=== PATIENT | female | born 1960 | race Caucasian/White ===

== ENCOUNTER → 2016-11-21 | Outpatient (CLI) | payer BC ==
--- NOTE | 2016-11-25 07:11 | MM ---
Reason for exam: screening (asymptomatic). Last mammogram was performed 5 years and 10 months ago. History: Patient is postmenopausal. Physical Findings: A clinical breast exam by your physician is recommended on an annual basis and results should be correlated with mammographic findings. MG Screening Mammo w CAD Bilateral CC and MLO view(s) were taken. Prior study comparison: January 30, 2011, [facility] DIGITAL LEFT BREAST MAMMOGRAM w/CAD. January 23, 2011, bilateral digital screening mammo w/CAD. There are scattered fibroglandular densities. No significant changes when compared with prior studies. ASSESSMENT: Negative, BI-RAD 1 RECOMMENDATION: Routine screening mammogram of both breasts in 1 year.
== END | disposition home or self-care (01) ==
LOC: RADMAMWWP 09:10
PROVIDERS: ATTEND Family Medicine
DX: Z12.31 Encounter for screening mammogram for malignant neoplasm of breast (principal)

== ENCOUNTER 2017-02-04 07:08 | Day surgery (SDC) | payer BC ==
[2017-01-31 15:55] VITALS: BMI 31.1
[~2017-02-04 07:08] MED LIST: LACTATED RINGERS 1,000 ML IV SCH
[2017-02-04 07:59] LABS: Glucose,Whole Blood 114 mg/dL (75-99)
[2017-02-04 08:00] VITALS: TEMP 98.1
[2017-02-04] MEDS ORDERED: LIDOCAINE 1% 20 ML VIAL (10MG/ML) FOR IV START INTRADERMA ONE (08:00)
[2017-02-04] MEDS ORDERED: GLUCAGON 1 MG/ML VIAL ONE (08:09)
[2017-02-04] MEDS ORDERED: PROPOFOL 10 MG/ML 20 ML VIAL IV ONE (08:09)
--- NOTE | 2017-02-04 08:51 | P.PCN ---
Date of Procedure: 02/04/17 Preoperative Diagnosis: Screening colonoscopy family history colon cancer, last colonoscopy 10 years ago Postoperative Diagnosis: Tortuous sigmoid colon, diverticuli, internal hemorrhoids, small polyp in the rectum which was removed with snare polypectomy and retrieved Procedure(s) Performed: Colonoscopy with snare polypectomy of rectal polyp Anesthesia: MAC Surgeon: Rachael Louise Estimated Blood Loss (ml): 0 IV fluids (ml): 200 Pathology: other (Rectal polyp) Condition: stable Disposition: PACU Indications for Procedure: Last colonoscopy 10 years ago, family history of Colon cancer Operative Findings: Tortuous redundant sigmoid colon, diverticuli, internal hemorrhoids, small polyp in the rectum removed with snare polypectomy and retrieved Description of Procedure: Patient was taken to the endoscopy suite and following sedation rectal exam was performed. Patient was noted to have slightly decreased sphincter tone no masses. Colonoscope was passed through the anus into the rectum. Was passed through the sigmoid colon which was tortuous and redundant up to the splenic flexure. Was passed through the transverse colon hepatic flexure right colon down to the area of the cecum. Circumferential observation of the mucosa did not reveal any lesions of concern in the cecum or right colon. No lesions of concern were identified in the transverse colon. No lesions of concern were noted in the left colon and the sigmoid colon scattered diverticuli were identified. Scope was brought down into the rectum where it was retroflexed internal hemorrhoids were identified. In the rectum there is a small polypoid lesion noted this was removed with snare polypectomy and retrieved. There was no active bleeding following this. The patient tolerated procedure in stable condition. Impression/plan: 1. Diverticuli 2. Internal hemorrhoids 3. Small polyp rectal area removed with snare polypectomy and retrieved Plan: 1. Conservative management diverticuli and hemorrhoids 2. Await results of polypectomy 3. Most likely repeat scope 7-10 years depending on results of polypectomy
--- NOTE | 2017-02-04 08:52 | P.DS ---
Providers Attending physician: Rachael Louise Primary care physician: Rowdy Martinez Plan - Discharge Summary Discharge Medication List Levothyroxine Sodium [Synthroid] 100 mcg PO DAILY 07/07/15 [History] Simvastatin [Zocor] 20 mg PO HS 07/07/15 [History] metFORMIN HCL [Glucophage] 500 mg PO BID 07/07/15 [History] ALPRAZolam [Xanax] 1 mg PO DIRECTED PRN 01/31/17 [History] Follow up Appointment(s)/Referral(s): Rachael Louise MD [STAFF PHYSICIAN] - 1 Week (call office on friday for polypectomy results) Activity/Diet/Wound Care/Special Instructions: do not drive today Discharge Disposition: HOME SELF-CARE
[2017-02-04 09:16] LABS: Glucose,Whole Blood 189 mg/dL (75-99)
[2017-02-04 09:17] VITALS: BP 116/78; PULSE 71; RESP 16
== END 2017-02-04 09:35 | disposition home or self-care (01) ==
LOC: ORWHC2ENDO 07:08
PROVIDERS: ATTEND Surgery
DX: Z12.11 Encounter for screening for malignant neoplasm of colon (principal); Z80.0 Family history of malignant neoplasm of digestive organs; D12.8 Benign neoplasm of rectum; Q43.8 Other specified congenital malformations of intestine; K57.30 Diverticulosis of large intestine without perforation or abscess without bleeding; K64.8 Other hemorrhoids; E11.9 Type 2 diabetes mellitus without complications; E07.9 Disorder of thyroid, unspecified; F41.9 Anxiety disorder, unspecified; Z79.84 Long term (current) use of oral hypoglycemic drugs; Z79.899 Other long term (current) drug therapy
CPT/HCPCS: 88305; 45385; J1610; J2704

== ENCOUNTER → 2017-06-09 | Outpatient (CLI) | payer BC ==
--- NOTE | 2017-06-09 12:33 | ECHOF ---
Referral Reason:H47.10 Unspecified papilledema MEASUREMENTS -------- HEIGHT: 157.5 cm WEIGHT: 74.8 kg BP: 120/60 IVSd: 1.1 cm (0.6 - 1.1) LVIDd: 4.1 cm (3.9 - 5.3) LVPWd: 1.1 cm (0.6 - 1.1) IVSs: 1.2 cm LVIDs: 3.2 cm LVPWs: 1.4 cm LA Diam: 2.6 cm (2.7 - 3.8) LAESV Index (A-L): 29.90 ml/m Ao Diam: 3.0 cm (2.0 - 3.7) AV Cusp: 2.0 cm (1.5 - 2.6) LA Diam: 3.3 cm (2.7 - 3.8) MV EXCURSION: 18.547 mm (> 18.000) MV EF SLOPE: 108 mm/s (70 - 150) EPSS: 0.3 cm MV E Pancho: 0.55 m/s MV DecT: 167 ms MV A Pancho: 0.64 m/s MV E/A Ratio: 0.86 RAP: 5.00 mmHg RVSP: 20.20 mmHg FINDINGS -------- Sinus rhythm. This was a technically adequate study. There is borderline concentric left ventricular hypertrophy. Overall left ventricular systolic function is normal with, an EF between 55 - 60 %. The right ventricle is normal in size. LA is midly dilated 29-33ml/m2. The right atrial size is normal. The aortic valve is trileaflet, and appears structurally normal. No aortic stenosis or regurgitation. Mild mitral regurgitation is present. Mild tricuspid regurgitation present. There is no evidence of pulmonary hypertension. The right ventricular systolic pressure, as measured by Doppler, is 20.20mmHg. There is no pulmonic regurgitation present. The aortic root size is normal. There is no pericardial effusion. CONCLUSIONS -------- 1. There is borderline concentric left ventricular hypertrophy. 2. Overall left ventricular systolic function is normal with, an EF between 55 - 60 %. 3. LA is midly dilated 29-33ml/m2. 4. Mild mitral regurgitation is present. 5. Mild tricuspid regurgitation present. 6. There is no evidence of pulmonary hypertension. 7. The right ventricular systolic pressure, as measured by Doppler, is 20.20mmHg. HAND RUG BRAIDER: Amber Samayoa RDCS
== END | disposition home or self-care (01) ==
LOC: RADECHMAIN 11:14
PROVIDERS: ATTEND Family Medicine
DX: I08.1 Rheumatic disorders of both mitral and tricuspid valves (principal); R26.9 Unspecified abnormalities of gait and mobility
CPT/HCPCS: 93306

== ENCOUNTER → 2017-06-10 | Outpatient (CLI) | payer BC ==
--- NOTE | 2017-06-10 08:34 | CT ---
EXAMINATION TYPE: CT brain wo con DATE OF EXAM: 06/10/2017 HISTORY: Unspecified papilledema and abnormality of gait per order. Headache, dizziness, right facial numbness, and vision changes per patient. CT DLP: 1082 mGycm. Automated Exposure Control for Dose Reduction was Utilized. TECHNIQUE: CT scan of the head is performed without contrast. COMPARISON: None. FINDINGS: There is no acute intracranial hemorrhage or midline shift identified. There is diffuse v entricular and sulcal prominence consistent with diffuse age-related cerebral atrophy. The visualize d globes are intact and the visualized sinuses are clear. IMPRESSION: No acute intracranial hemorrhage or midline shift. There is mild diffuse age-related ce rebral atrophy otherwise unremarkable study.
--- NOTE | 2017-06-10 08:58 | US ---
EXAMINATION TYPE: US carotid duplex BILAT DATE OF EXAM: 06/10/2017 COMPARISON: NONE CLINICAL HISTORY: R26.9 abnormality of gait H47.10 papilledema. EXAM MEASUREMENTS: RIGHT: Peak Systolic Velocity (PSV) cm/sec ----- Right CCA: 77.9 ----- Right ICA: 87.5 ----- Right ECA: 103.7 ICA/CCA ratio: 1.1 RIGHT: End Diastole cm/sec ----- Right CCA: 26.2 ----- Right ICA: 31.0 ----- Right ECA: 19.7 LEFT: Peak Systolic Velocity (PSV) cm/sec ----- Left CCA: 78.3 ----- Left ICA: 85.7 ----- Left ECA: 85.3 ICA/CCA ratio: 1.1 LEFT: End Diastole cm/sec ----- Left CCA: 26.7 ----- Left ICA: 42.0 ----- Left ECA: 20.6 VERTEBRALS (direction of flow): Right Vertebral: Antegrade Left Vertebral: Antegrade Mild atherosclerotic changes noted. No hemodynamically significant stenosis seen. Grayscale images show no significant plaque at carotid bulb level bilaterally. Velocity measurements and ratios are within normal limits in visualized portion of both internal carotid arteries. IMPRESSION: No hemodynamically significant stenosis is seen in either internal carotid artery.
== END | disposition home or self-care (01) ==
LOC: RADCTMAIN 08:04
PROVIDERS: ATTEND Family Medicine
DX: H47.10 Unspecified papilledema (principal); R26.9 Unspecified abnormalities of gait and mobility
CPT/HCPCS: 70450; 93880

== ENCOUNTER → 2018-02-11 | Outpatient (CLI) | payer BC ==
[2018-02-11 08:00] LABS: AST 14 U/L (14-36); Albumin 4.2 g/dL (3.5-5.0); Alkaline Phosphatase 62 U/L (38-126); Blood Urea Nitrogen 16 mg/dL (7-17); Calcium 9.9 mg/dL (8.4-10.2); Carbon Dioxide 25 mmol/L (22-30); Cholesterol 165 mg/dL (<200); Glucose 116 mg/dL (74-99); HDL Cholesterol 61 mg/dL (40-60); LDL Cholesterol,Calculated 84 mg/dL (0-99); Potassium 4.7 mmol/L (3.5-5.1); Sodium 140 mmol/L (137-145); Total Bilirubin 0.5 mg/dL (0.2-1.3); Total Protein 6.7 g/dL (6.3-8.2); Triglycerides 99 mg/dL (<150)
[2018-02-11 08:53] LABS: ALT 22 U/L (9-52); Anion Gap 10 mmol/L; Chloride 105 mmol/L (98-107)
[2018-02-11 19:13] LABS: Vitamin D 25 Hydroxy 30.4 ng/mL (30.0-100.0)
== END | disposition home or self-care (01) ==
LOC: LABWHC1 07:19
PROVIDERS: ATTEND Internal Medicine Endocrinology, Diabetes & Metabolism
DX: E11.9 Type 2 diabetes mellitus without complications (principal); E03.8 Other specified hypothyroidism; E55.9 Vitamin D deficiency, unspecified
CPT/HCPCS: 36415; 80053; 80061; 82043; 82306; 82570; 82607; 84443

== ENCOUNTER → 2018-09-15 | Outpatient (CLI) | payer BC ==
[2018-09-15 15:57] LABS: Vitamin D 25 Hydroxy 17.3 ng/mL (30.0-100.0)
[2018-09-15 18:15] LABS: Albumin 4.4 g/dL (3.80-4.90); Albumin/Globulin Ratio 2.32 (1.20-2.10); Anion Gap 8.2 mmol/L (4.00-12.00); Calcium 9.2 mg/dL (8.7-10.3); Carbon Dioxide 22.8 mmol/L (21.6-31.8); Globulin 1.9 g/dL (2.1-3.7); LDL Cholesterol,Calculated 111.4 mg/dL (0.0-131.0); Potassium 4.8 mmol/L (3.5-5.5); Total Bilirubin 0.6 mg/dL (0.3-1.2); Total Protein 6.3 g/dL (6.2-8.2); VLDL Calculation 19.6 mg/dL (5.00-40.00)
[2018-09-15 19:03] LABS: Hemoglobin A1C 5.6 % (4.0-6.0)
== END | disposition home or self-care (01) ==
LOC: LABWHC1 09:19
PROVIDERS: ATTEND Internal Medicine Endocrinology, Diabetes & Metabolism
DX: E11.9 Type 2 diabetes mellitus without complications (principal); E03.8 Other specified hypothyroidism; E55.9 Vitamin D deficiency, unspecified
CPT/HCPCS: 36415; 80053; 80061; 82043; 82306; 82570; 82607; 83036; 84443

== ENCOUNTER → 2018-12-25 | Outpatient (CLI) | payer BC ==
[2018-12-25 18:32] LABS: Albumin 4.5 g/dL (3.80-4.90); Albumin/Globulin Ratio 2.05 (1.60-3.17); Anion Gap 8.8 mmol/L (4.00-12.00); Calcium 9.7 mg/dL (8.7-10.3); Carbon Dioxide 25.2 mmol/L (21.6-31.8); Globulin 2.2 g/dL (1.6-3.3); LDL Cholesterol,Calculated 150.6 mg/dL (0.0-131.0); Potassium 4.6 mmol/L (3.5-5.5); Total Bilirubin 0.9 mg/dL (0.3-1.2); Total Protein 6.7 g/dL (6.2-8.2); VLDL Calculation 23.4 mg/dL (5.00-40.00)
[2018-12-25 22:55] LABS: Hemoglobin A1C 5.7 % (4.0-6.0)
== END ==
LOC: LABWHC1 08:07
PROVIDERS: ATTEND Internal Medicine Endocrinology, Diabetes & Metabolism
DX: E11.9 Type 2 diabetes mellitus without complications (principal); E55.9 Vitamin D deficiency, unspecified
CPT/HCPCS: 36415; 80053; 80061; 82043; 82306; 82570; 83036; 84443

== ENCOUNTER → 2019-01-19 | Outpatient (CLI) | payer BC ==
--- NOTE | 2019-01-20 10:26 | MM ---
Reason for exam: screening (asymptomatic). Last mammogram was performed 2 years and 2 months ago. History: Patient is postmenopausal. Took hormonal contraceptives for 20 years. Physical Findings: A clinical breast exam by your physician is recommended on an annual basis and results should be correlated with mammographic findings. MG 3D Screening Mammo W/Cad Bilateral CC and MLO view(s) were taken. Prior study comparison: November 21, 2016, bilateral MG screening mammo w CAD. January 30, 2011, [facility] DIGITAL LEFT BREAST MAMMOGRAM w/CAD. There are scattered fibroglandular densities. There is no discrete abnormality. ASSESSMENT: Negative, BI-RAD 1 RECOMMENDATION: Routine screening mammogram of both breasts in 1 year.
== END | disposition home or self-care (01) ==
LOC: RADMAMWWP 08:14
PROVIDERS: ATTEND Family Medicine
DX: Z12.31 Encounter for screening mammogram for malignant neoplasm of breast (principal)
CPT/HCPCS: 77063; 77067

== ENCOUNTER 2019-01-29 00:43 | Emergency (ER) | payer BC ==
[2019-01-29 01:08] VITALS: BP 122/72; PULSE 77; RESP 20; TEMP 97.4
[2019-01-29] MEDS ORDERED: predniSONE 20 MG TAB PO STA (01:19)
[2019-01-29] MEDS ORDERED: FAMOTIDINE 20 MG TAB PO STA (01:19)
--- NOTE | 2019-01-29 01:53 | ED ---
Allergic Reaction HPI - General Chief complaint: Allergic Reaction Stated complaint: Allergic Reaction/Hives Time Seen by Provider: 01/29/19 01:19 Source: patient Mode of arrival: ambulatory Limitations: no limitations - History of Present Illness Initial Comments: Radha is a pleasant 58-year-old female comes the ER for evaluation of ALLERGIC reaction. Patient reports that this afternoon she cleaned her carpets with a new chemical machine rug cleaner. After cleaning a carpet she noticed that she had hives on her upper or lower extremities and her trunk. Patient reports that she's been taking 50 mg of Benadryl every 4 hours since that time however he became bedtime and she started to feel somewhat anxious about having an ALLERGIC reaction. She began to feel like there may be some tightness in her chest that she had no wheezing or shortness of breath she decided to come to the ER for evaluation. Patient has no history of asthma or COPD. She has no shortness of breath. No chest pain. No nausea or vomiting. She reports she began feeling there some tightness in her chest though she is breathing well & tolerating oral intake. MD Complaint: allergic reaction - Related Data Home Medications Medication Instructions Recorded Confirmed Levothyroxine Sodium [Synthroid] 100 mcg PO DAILY 07/07/15 02/04/17 Simvastatin [Zocor] 20 mg PO HS 07/07/15 02/04/17 metFORMIN HCL [Glucophage] 500 mg PO BID 07/07/15 02/04/17 ALPRAZolam [Xanax] 1 mg PO DIRECTED PRN 01/31/17 02/04/17 Allergies Allergy/AdvReac Type Severity Reaction Status Date / Time No Known Allergies Allergy Verified 01/29/19 01:07 Review of Systems ROS Statement: Those systems with pertinent positive or pertinent negative responses have been documented in the HPI. ROS Other: All systems not noted in ROS Statement are negative. Past Medical History Past Medical History: Diabetes Mellitus, Hyperlipidemia, Thyroid Disorder Additional Past Medical History / Comment(s): HX OF MIGRAINES History of Any Multi-Drug Resistant Organisms: None Reported Past Surgical History: Adenoidectomy, Tonsillectomy Additional Past Surgical History / Comment(s): COLONOSCOPY Past Anesthesia/Blood Transfusion Reactions: No Reported Reaction Past Psychological History: Anxiety Smoking Status: Never smoker Past Alcohol Use History: Rare Past Drug Use History: None Reported - Past Family History Father Family Medical History: Cancer Additional Family Medical History / Comment(s): CANCER Sister(s) Family Medical History: Cancer Additional Family Medical History / Comment(s): LUNG General Exam - General Exam Comments Initial Comments: Physical Exam GENERAL: Patient is well-developed and well-nourished. Patient is nontoxic and well- hydrated and is in no distress. HENT: Normocephalic, Atraumatic. Normal oropharynx, no signs of posterior oropharyngeal edema EYES: PERRL, EOMI PULMONARY: Unlabored respirations. No audible rales rhonchi or wheezing was noted. No wheezing or rhonchi CARDIOVASCULAR: There is a regular rate and rhythm without any murmurs gallops or rubs. ABDOMEN: Soft and nontender with normal bowel sounds. SKIN: Hives on her upper extremities, excoriations in the antecubital fossa is Small amount of scattered hives on the abdomen Hives on the lower extremities most prominent on the thighs with excoriations : Deferred NEUROLOGIC: Patient is alert and oriented x3. Moving all extremities spontaneously MUSCULOSKELETAL: Normal extremities with adequate strength and full range of motion. No lower extremity swelling or edema. No calf tenderness. PSYCHIATRIC: Normal psychiatric evaluation. Limitations: no limitations Limitations: no limitations Course Vital Signs 01/29/19 01:04 Temperature 97.4 F L Pulse Rate 77 Respiratory 20 Rate Blood Pressure 122/72 O2 Sat by Pulse 99 Oximetry Medical Decision Making - Medical Decision Making Patient was seen and evaluated history is obtained from patient Patient had exposure to cleaning chemicals today and subsequently developed hives after 6 and half hours of symptoms she came to the ER for evaluation of tightness in her throat she became concerned that if she went to sleep while having ALLERGIC reaction to get much worse Physical exam does reveal hives, there does not appear to be any respiratory involvement there is no stridor no oropharyngeal edema, no uvula edema, no wheezing Absent and steroids were ordered Disposition Clinical Impression: Allergic reaction Disposition: HOME SELF-CARE Condition: Poor Instructions (If sedation given, give patient instructions): Urticaria (ED) Is patient prescribed a controlled substance at d/c from ED?: No Referrals: Rowdy Martinez MD [Primary Care Provider] - 1-2 days
== END 2019-01-29 02:05 | disposition home or self-care (01) ==
LOC: EC 00:43
DX: T78.49XA Other allergy, initial encounter (principal); L50.9 Urticaria, unspecified; E11.9 Type 2 diabetes mellitus without complications; E78.5 Hyperlipidemia, unspecified; E07.9 Disorder of thyroid, unspecified; Z79.890 Hormone replacement therapy; Z79.84 Long term (current) use of oral hypoglycemic drugs; Z79.899 Other long term (current) drug therapy
CPT/HCPCS: 99283; J7512

== ENCOUNTER → 2019-03-17 | Day surgery (SDC) | payer BC ==
[2019-03-15 14:14] VITALS: BMI 29.2
[~2019-03-17] MED LIST changes: +LIDOCAINE 1% 20 ML VIAL (10MG/ML) FOR IV START INTRADERMA PRN; +PROPOFOL 10 MG/ML 20 ML VIAL IV ONE; +fentaNYL (PF) 50 MCG/ML 2 ML AMP IV ONE
[2019-03-17 07:16] VITALS: TEMP 96.5
[2019-03-17 07:25] LABS: Glucose,Whole Blood 129 mg/dL (75-99)
--- NOTE | 2019-03-17 07:39 | P.GSHP ---
History of Present Illness H&P Date: 03/17/19 CHIEF COMPLAINT: Colon screen HISTORY OF PRESENT ILLNESS: The patient is a 58-year-old female who presents for colon screen. Lower endoscopy was offered for further evaluation and management. PAST MEDICAL HISTORY: Please see list. PAST SURGICAL HISTORY: Please see list. MEDICATIONS: Please see list. ALLERGIES: Please see list. SOCIAL HISTORY: No illicit drug use FAMILY HISTORY: No reports of Crohn disease or ulcerative colitis. REVIEW OF ORGAN SYSTEMS: CONSTITUTIONAL: No reports of fevers or chills. PHYSICAL EXAM: VITAL SIGNS: Stable GENERAL: Well-developed pleasant in no acute distress. HEENT: No scleral icterus. Extraocular movements grossly intact. Moist buccal mucosa. NECK: Supple without lymphadenopathy. CHEST: Unlabored respirations. Equal bilateral excursions. CARDIOVASCULAR: Regular rate and rhythm. Distal 2+ pulses. ABDOMEN: Soft, nontender, nondistended. MUSCULOSKELETAL: No clubbing, cyanosis, or edema. ASSESSMENT: 1. Colon screen. PLAN: 1. Recommend proceeding with a lower endoscopy Past Medical History Past Medical History: Diabetes Mellitus, Hyperlipidemia, Thyroid Disorder Additional Past Medical History / Comment(s): HX OF MIGRAINES History of Any Multi-Drug Resistant Organisms: None Reported Past Surgical History: Adenoidectomy, Tonsillectomy Additional Past Surgical History / Comment(s): COLONOSCOPY Past Anesthesia/Blood Transfusion Reactions: No Reported Reaction Smoking Status: Never smoker - Past Family History Father Family Medical History: Cancer Additional Family Medical History / Comment(s): colon-rectal Sister(s) Family Medical History: Cancer Additional Family Medical History / Comment(s): LUNG Medications and Allergies Home Medications Medication Instructions Recorded Confirmed Type Levothyroxine Sodium [Synthroid] 100 mcg PO DAILY 07/07/15 03/17/19 History Simvastatin [Zocor] 20 mg PO HS 07/07/15 03/17/19 History metFORMIN HCL [Glucophage] 500 mg PO HS 07/07/15 03/17/19 History ALPRAZolam [Xanax] 1 mg PO DIRECTED PRN 01/31/17 03/17/19 History Cholecalciferol [Vitamin D3 (25 5,000 unit PO WE 03/15/19 03/17/19 History Mcg = 1000 Iu)] Allergies Allergy/AdvReac Type Severity Reaction Status Date / Time No Known Allergies Allergy Verified 03/17/19 07:08 Surgical - Exam Vital Signs Temp Pulse Resp BP Pulse Ox 96.5 F L 71 18 102/50 96 03/17/19 07:13 03/17/19 07:13 03/17/19 07:13 03/17/19 07:13 03/17/19 07:13 Results - Labs Abnormal Lab Results - Last 24 Hours (Table) 03/17/19 Range/Units 07:15 POC Glucose (mg/dL) 129 H (75-99) mg/dL
[2019-03-17 08:02] VITALS: RESP 16
--- NOTE | 2019-03-17 08:04 | P.PCN ---
Date of Procedure: 03/17/19 Description of Procedure: PREOPERATIVE DIAGNOSIS: Family history of colon cancer, father Patient history of colon polyps Colonoscopy screening. POSTOPERATIVE DIAGNOSIS: Family history of colon cancer, father Patient history of colon polyps Colonoscopy screening. Moderate sigmoid diverticulosis OPERATION: Colonoscopy to the hepatic flexure SURGEON: Pau Thomas MD. ANESTHESIA: MAC. INDICATIONS: The patient is a 58-year-old female who presents for colonoscopy screening. Last colonoscopy 2 years ago with history of polyps. Benefits and risks were described and informed consent was obtained. DESCRIPTION OF PROCEDURE: The patient had undergone Gatorade, MiraLAX and Dulcolax prep. She had been brought into the operating room and laid in the left lateral decubitus position. After adequate intravenous sedation, the rectum was examined with 2% lidocaine jelly. No external hemorrhoids were encountered. The rectal tone was within normal limits. No lesions were palpated in the rectal vault. An Olympus colonoscope was advanced to the hepatic flexure where multiple maneuvers were obtained to advance the scope without success. Due to high risk for perforation for ongoing advancement the scope, the scope was drawn after proximal view of the hepatic flexure. The prep was good. Moderate sigmoid diverticulosis was encountered. No colonic polyps were found to the hepatic flexure No evidence of focal colitis was found. Retroflexion of the scope demonstrated no internal hemorrhoids. The colon was desufflated. The patient had tolerated the procedure well. Withdrawal time was over 6 minutes. FINDINGS: Aronchick preparation quality scale 1 (1-5) No internal hemorrhoids No external prolapsed hemorrhoids. No arteriovenous malformations. No adenomatous polyps. No focal colitis. Scope advanced to the hepatic flexure without clear review of cecum and ileocecal valve RECOMMENDATIONS: 1. Recommend completion barium enema for cecum and ascending colon 2. Repeat colonoscopy in 3 years due to high personal familial risks Plan - Discharge Summary Discharge Rx Participant: No New Discharge Prescriptions: No Action metFORMIN HCL [Glucophage] 500 mg PO HS Simvastatin [Zocor] 20 mg PO HS Levothyroxine Sodium [Synthroid] 100 mcg PO DAILY ALPRAZolam [Xanax] 1 mg PO DIRECTED PRN PRN Reason: Anxiety Cholecalciferol [Vitamin D3 (25 Mcg = 1000 Iu)] 5,000 unit PO WE Discharge Medication List Levothyroxine Sodium [Synthroid] 100 mcg PO DAILY 07/07/15 [History] Simvastatin [Zocor] 20 mg PO HS 07/07/15 [History] metFORMIN HCL [Glucophage] 500 mg PO HS 07/07/15 [History] ALPRAZolam [Xanax] 1 mg PO DIRECTED PRN 01/31/17 [History] Cholecalciferol [Vitamin D3 (25 Mcg = 1000 Iu)] 5,000 unit PO WE 03/15/19 [History] Follow up Appointment(s)/Referral(s): Pau Thomas MD [STAFF PHYSICIAN] - As Needed Ambulatory/Diagnostic Orders: Miscellaneous Radiology Order [RAD.AMB] Time Frame: 3 Weeks, Facility: [facility], Location: [facility], [place] Patient Instructions/Handouts: *Surgery [facility] - (Anesthesia) Endoscopy Discharge Instructions, Diverticulosis (DC), Colonoscopy (DC), Barium Enema (PRE), Diverticulosis Diet (GEN) Discharge Disposition: HOME SELF-CARE
[2019-03-17 08:30] VITALS: BP 93/64; PULSE 67
--- NOTE | 2019-03-17 12:47 | FL ---
EXAMINATION TYPE: FL barium enema DATE OF EXAM: 03/17/2019 CLINICAL HISTORY: limited colonoscopy to hepatic flexure TECHNIQUE: A tear contrast barium enema study is performed. COMPARISON: None. FINDINGS: [facility]house Attendant view of the abdomen shows overall non-obstructive bowel gas pattern.No evidence of a ny mass or polyp, obstructing or constricting lesion throughout the colon. Moderate diverticulosis of the descending colon and sigmoid colon without evidence for diverticulitis. Appendix was filled and appeared normal. The terminal ileum was refluxed and appears within normal limits. IMPRESSION: 1. Diverticulosis without diverticulitis. Otherwise unremarkable study.
== END | disposition home or self-care (01) ==
LOC: ORWHC2ENDO 06:57
PROVIDERS: ATTEND Surgery Plastic and Reconstructive Surgery
DX: Z12.11 Encounter for screening for malignant neoplasm of colon (principal); K57.30 Diverticulosis of large intestine without perforation or abscess without bleeding; Z86.010 Personal history of colon polyps; Z80.0 Family history of malignant neoplasm of digestive organs; E78.5 Hyperlipidemia, unspecified; E11.9 Type 2 diabetes mellitus without complications; E07.9 Disorder of thyroid, unspecified; Z79.84 Long term (current) use of oral hypoglycemic drugs; Z79.890 Hormone replacement therapy; Z79.899 Other long term (current) drug therapy
CPT/HCPCS: 74270; J3010; J2704; G0105; 45378

== ENCOUNTER 2019-03-28 09:24 | Emergency (ER) | payer BC, OTHER ==
[2019-03-28 09:40] VITALS: RESP 18
[2019-03-28] MEDS ORDERED: DIPH,PERTUS(ACELL)TETVAC-LF 0.5 ML VIAL IM ONE (10:12)
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
--- NOTE | 2019-03-28 10:57 | ED ---
General Adult HPI - General Chief complaint: Head Injury Stated complaint: Head injury-[facility] Time Seen by Provider: 03/28/19 09:30 Source: patient, EMS, RN notes reviewed Mode of arrival: EMS Limitations: no limitations - History of Present Illness Initial comments: 58-year-old female presents to the emergency department for a chief complaint of head injury. Patient was at work at [employer] when a rack of rotisserie chicken fell on her head from a few feet above her head. Patient states that she believes it did cut her head as she is bleeding. However, EMS could not find the laceration because of her hair. Patient denies a loss of consciousness but does admit to a mild headache at this time. States she did feel dazed afterwards as well but is now at baseline. Denies significant neck pain. States tetanus is not up-to-date. Denies being on any blood thinners.Patient has no other complaints at this time including shortness of breath, chest pain, abdominal pain, nausea or vomiting, or visual changes. - Related Data Home Medications Medication Instructions Recorded Confirmed Levothyroxine Sodium [Synthroid] 100 mcg PO DAILY 07/07/15 03/28/19 Simvastatin [Zocor] 20 mg PO HS 07/07/15 03/28/19 metFORMIN HCL [Glucophage] 500 mg PO HS 07/07/15 03/28/19 ALPRAZolam [Xanax] 1 mg PO TID PRN 01/31/17 03/28/19 Ergocalciferol (Vitamin D2) 50,000 unit PO WE 03/28/19 03/28/19 [Vitamin D2] Lisinopril [Zestril] 2.5 mg PO HS 03/28/19 03/28/19 Allergies Allergy/AdvReac Type Severity Reaction Status Date / Time No Known Allergies Allergy Verified 03/28/19 09:50 Review of Systems ROS Statement: Those systems with pertinent positive or pertinent negative responses have been documented in the HPI. ROS Other: All systems not noted in ROS Statement are negative. Past Medical History Past Medical History: Diabetes Mellitus, Hyperlipidemia, Thyroid Disorder Additional Past Medical History / Comment(s): HX OF MIGRAINES History of Any Multi-Drug Resistant Organisms: None Reported Past Surgical History: Adenoidectomy, Tonsillectomy Additional Past Surgical History / Comment(s): COLONOSCOPY; barium enema 03/2019 Past Anesthesia/Blood Transfusion Reactions: No Reported Reaction Past Psychological History: Anxiety Smoking Status: Never smoker Past Alcohol Use History: Rare Past Drug Use History: None Reported - Past Family History Father Family Medical History: Cancer Additional Family Medical History / Comment(s): colon-rectal Sister(s) Family Medical History: Cancer Additional Family Medical History / Comment(s): LUNG General Exam Limitations: no limitations General appearance: alert, in no apparent distress Head exam: Absent: atraumatic (She has a 3 cm laceration noted to the vertex of the scalp) Eye exam: Present: normal appearance, PERRL, EOMI. Absent: scleral icterus, conjunctival injection, periorbital swelling ENT exam: Present: normal exam, mucous membranes moist Neck exam: Present: normal inspection, full ROM. Absent: tenderness, meningismus, lymphadenopathy Respiratory exam: Present: normal lung sounds bilaterally. Absent: respiratory distress, wheezes, rales, rhonchi, stridor Cardiovascular Exam: Present: regular rate, normal rhythm, normal heart sounds. Absent: systolic murmur, diastolic murmur, rubs, gallop, clicks Extremities exam: Present: other (Moving all extremities without difficulty) Neurological exam: Present: alert, oriented X3, CN II-XII intact, normal gait, other (GCS 15) Psychiatric exam: Present: normal affect, normal mood Course Vital Signs 03/28/19 09:33 Temperature 98.7 F Pulse Rate 82 Respiratory 18 Rate Blood Pressure 114/78 O2 Sat by Pulse 97 Oximetry Procedures - Laceration Laceration #1 Consent Obtained: verbal consent Indication: laceration Site: scalp Size (cm): 3 Description: linear Depth: simple, single layer Type of Sutures: other (geoff) Number of Sutures: 3 Patient Tolerated Procedure: well, no complications Medical Decision Making - Medical Decision Making 58-year-old female presents to the emergency department for a chief complaint of head injury. A rotisserie chicken rack fell on her head about 30 minutes prior to arrival. No loss of consciousness, no anticoagulation. No focal neuro deficits on exam. Patient does have a 3 cm laceration to the vertex of the head. This was repaired with geoff. Tetanus was updated. CT brain showed no acute intracranial abnormality. CT C-spine showed no acute osseous lesion. Patient feeling better at this time. Patient will return here if she has any worsening symptoms. Disposition Clinical Impression: Laceration, Head injury Disposition: HOME SELF-CARE Condition: Good Instructions (If sedation given, give patient instructions): Head Injury (ED), Laceration (ED), Staple Care (ED) Additional Instructions: Please keep the area clean. Please return in 7-10 days for staple removal of 3 geoff. Take Motrin or Tylenol for pain. Return here to the emergency Department if you're having any worsening symptoms. Otherwise follow-up with primary care in 1-2 days. Is patient prescribed a controlled substance at d/c from ED?: No Referrals: Rowdy Martinez MD [Primary Care Provider] - 1-2 days Time of Disposition: 10:55
[2019-03-28 11:45] VITALS: BP 125/88; PULSE 61; TEMP 97.5
== END 2019-03-28 11:45 | disposition home or self-care (01) ==
LOC: EC 09:24
DX: S01.01XA Laceration without foreign body of scalp, initial encounter (principal); E11.9 Type 2 diabetes mellitus without complications; E78.5 Hyperlipidemia, unspecified; E07.9 Disorder of thyroid, unspecified; Z23 Encounter for immunization; Z79.890 Hormone replacement therapy; Z79.84 Long term (current) use of oral hypoglycemic drugs; Z79.899 Other long term (current) drug therapy; W20.8XXA Other cause of strike by thrown, projected or falling object, initial encounter; Y92.69 Other specified industrial and construction area as the place of occurrence of the external cause; Y99.0 Civilian activity done for income or pay
CPT/HCPCS: 12002; 70450; 72125; 90471; 90715; 99284

== ENCOUNTER → 2019-04-14 | Outpatient (CLI) | payer BC ==
[2019-04-14 16:13] LABS: Albumin 4.2 g/dL (3.80-4.90); Albumin/Globulin Ratio 2.33 (1.60-3.17); Calcium 9.3 mg/dL (8.7-10.3); Globulin 1.8 g/dL (1.6-3.3); Potassium 4.4 mmol/L (3.5-5.5); Total Bilirubin 0.6 mg/dL (0.2-1.2)
== END | disposition home or self-care (01) ==
LOC: LABWHC1 09:07
PROVIDERS: ATTEND Internal Medicine Endocrinology, Diabetes & Metabolism
DX: E03.8 Other specified hypothyroidism (principal); E11.9 Type 2 diabetes mellitus without complications
CPT/HCPCS: 36415; 80053; 80061; 82043; 82570; 83036; 84443

== ENCOUNTER → 2019-07-07 | Outpatient (CLI) | payer BC ==
[2019-07-07 11:49] LABS: African American GFR (CKD) 93.5 (60.0-200.0); Albumin 4.3 g/dL (3.80-4.90); Albumin/Globulin Ratio 2.26 (1.60-3.17); Anion Gap 5.2 mmol/L (4.00-12.00); Calcium 9.5 mg/dL (8.7-10.3); Carbon Dioxide 26.8 mmol/L (21.6-31.8); Chol/HDL Ratio 2.75; Globulin 1.9 g/dL (1.6-3.3); LDL Cholesterol,Calculated 101.2 mg/dL (0.0-131.0); Potassium 4.1 mmol/L (3.5-5.5); Total Bilirubin 0.7 mg/dL (0.3-1.2); Total Protein 6.2 g/dL (6.2-8.2); VLDL Calculation 26.8 mg/dL (5.00-40.00)
[2019-07-07 15:20] LABS: Hemoglobin A1C 5.9 % (4.0-6.0)
== END | disposition home or self-care (01) ==
LOC: LABWHC1 06:50
PROVIDERS: ATTEND Internal Medicine Endocrinology, Diabetes & Metabolism
DX: E11.9 Type 2 diabetes mellitus without complications (principal)
CPT/HCPCS: 36415; 80053; 80061; 82043; 82570; 83036; 84443

== ENCOUNTER → 2020-10-10 | Outpatient (CLI) | payer OTHER ==
--- NOTE | 2020-10-10 12:49 | US ---
EXAMINATION TYPE: US gallbladder DATE OF EXAM: 10/10/2020 COMPARISON: NONE CLINICAL HISTORY: Right upper quadrant pain R10.11. EXAM MEASUREMENTS: Liver Length: 12.8 cm Gallbladder Wall: 0.2 cm CBD: 0.4 cm Right Kidney: 10.7 x 3.3 x 4.5 cm Pancreas: Tail obscured by overlying bowel gas Liver: Increased attenuation, hypoechoic area left lobe adjacent to left portal vein measuring 2.8 x x 1.6 x 1.7cm Gallbladder: cholelithiasis Evidence for sonographic Green's sign: no CBD: wnl Right Kidney: wnl IMPRESSION: 1. Cholelithiasis 2. Hypoechoic area adjacent to the left lobe of the liver measuring 2.8 cm is indeterminate. Althoug h this likely represents an area of focal fatty sparing a neoplasm cannot be excluded. Recommend CT s can of the abdomen with contrast.
== END | disposition home or self-care (01) ==
LOC: RADUSWWP 12:11
PROVIDERS: ATTEND Family Medicine
DX: K80.20 Calculus of gallbladder without cholecystitis without obstruction (principal); R93.5 Abnormal findings on diagnostic imaging of other abdominal regions, including retroperitoneum
CPT/HCPCS: 76705

== ENCOUNTER → 2020-11-21 | Outpatient (CLI) | payer OTHER | END | disposition home or self-care (01) | LOC: LABWHC1 10:21 | PROVIDERS: ATTEND Surgery Plastic and Reconstructive Surgery | DX: Z01.810 Encounter for preprocedural cardiovascular examination (principal) | CPT/HCPCS: 36415; 93005 ==

== ENCOUNTER → 2021-02-08 | Outpatient (CLI) | payer OTHER ==
[2021-02-08 09:09] LABS: INR 0.9 (<1.2); Partial Thromboplastin Time 22.4 sec (22.0-30.0); Prothrombin Time 9.9 sec (9.0-12.0)
[2021-02-08 16:10] LABS: % Iron Saturation 20.91 (12.00-45.00); African American GFR (CKD) 80.5 (60.0-200.0); Albumin 4.4 g/dL (3.80-4.90); Anion Gap 7.9 mmol/L (4.00-12.00); BUN/Creat Ratio 15.56 Ratio (12.00-20.00); Calcium 9.6 mg/dL (8.7-10.3); Carbon Dioxide 25.1 mmol/L (21.6-31.8); Chol/HDL Ratio 3.44; Globulin 2.2 g/dL (1.6-3.3); LDL Cholesterol,Calculated 134.2 mg/dL (0.0-131.0); Non-African American GFR(CKD) 69.5 (60.0-200.0); Phosphorus 4.7 mg/dL (2.4-5.1); Potassium 4.5 mmol/L (3.5-5.5); Total Bilirubin 0.4 mg/dL (0.3-1.2); Total Protein 6.6 g/dL (6.2-8.2); VLDL Calculation 21.8 mg/dL (5.00-40.00)
[2021-02-08 16:18] LABS: Ferritin 38.8 ng/mL (10.0-291.0)
[2021-02-08 16:19] LABS: Folate, Serum 5.7 ng/mL
[2021-02-08 17:17] LABS: HCT 42.8 % (37.2-46.3); HGB 13.7 g/dL (12.0-15.0); MCH 30.2 pg (27.0-32.0); MCV 94.5 fL (80.0-97.0); Mean Platelet Volume 9.6 fL (9.5-12.2); Platelet Count 266 X 10*3/uL (140-440); RBC 4.53 X 10*6/uL (4.10-5.20); RDW 12.1 % (11.5-14.5); WBC 4.97 X 10*3/uL (4.50-10.00)
[2021-02-08 18:33] LABS: Hemoglobin A1C 6.3 % (4.0-6.0)
[2021-02-09 13:14] LABS: Zinc, Serum 76 ug/dL (60-130)
== END | disposition home or self-care (01) ==
LOC: LABWHC1 08:05
PROVIDERS: ATTEND Surgery Plastic and Reconstructive Surgery
DX: Z01.818 Encounter for other preprocedural examination (principal); E66.01 Morbid (severe) obesity due to excess calories; E21.1 Secondary hyperparathyroidism, not elsewhere classified; K90.89 Other intestinal malabsorption; E55.9 Vitamin D deficiency, unspecified; K74.1 Hepatic sclerosis; N19 Unspecified kidney failure; K50.90 Crohn's disease, unspecified, without complications; E89.1 Postprocedural hypoinsulinemia
CPT/HCPCS: 36415; 80053; 80061; 82306; 82525; 82607; 82728; 82746; 83036; 83540; 83550; 83735; 83970; 84100; 84134; 84255; 84425; 84443; 84590; 84630; 85027; 85610; 85730

== ENCOUNTER 2021-02-23 07:38 | Day surgery (SDC) | payer OTHER ==
[2021-02-19 15:10] VITALS: BMI 31.1
--- NOTE | 2021-02-23 05:27 | P.GSHP ---
History of Present Illness H&P Date: 02/23/21 CHIEF COMPLAINT: Cholecystitis HISTORY OF PRESENT ILLNESS: The patient is a 60-year-old female who presents with history of epigastric including right upper quadrant abdominal pain. She underwent diagnostic studies for her gallbladder. Separately her clinical picture was consistent with cholecystitis. Now she presents for surgical intervention. PAST MEDICAL HISTORY: Please see list PAST SURGICAL HISTORY: Please see list MEDICATIONS: Please see list ALLERGIES: Please see list SOCIAL HISTORY: Please see list FAMILY HISTORY: Please see list REVIEW OF ORGAN SYSTEMS: Gastrointestinal: No reports of blood in stools. Has gallstones. CONSTITUTIONAL: No fevers or chills. No recent weight loss. EYES: Denies any trouble with vision. Wears glasses. HEENT: No difficulties with hearing. No nosebleeds. No difficulty swallowing. RESPIRATORY: Denies pneumonia. Denies any troubles with breathing or dyspnea on exertion. CARDIOVASCULAR: Denies any chest pain, palpitations, or recent heart attacks. Has hypertensive heart disease. Has hyperlipidemia. Has abnormal EKG. GENITOURINARY: Denies any blood in urine or increased urinary frequency. NEUROLOGICAL: Denies any numbness or tingling along the distal extremities. No seizure disorders or headaches. MUSCULOSKELETAL: Denies any back pain, stiffness or joint arthritis. SKIN: No current skin cancer. No rash. PSYCHIATRIC: Has depression. No suicidal thoughts. Has generalized anxiety disorder. ENDOCRINE: Has hypothyroidism. Has diabetes type II with complications. HEME/LYMPHATIC: Denies any lumps and bumps around the neck. No recent deep venous thrombosis. ALLERGY/IMMUNOLOGY: No immunoglobulin therapy. No immune deficiencies. BREAST: Denies current breast lumps, pain or nipple discharge. PHYSICAL EXAM: VITAL SIGNS: Afebrile vital signs stable GENERAL: Well-developed pleasant in no acute distress. HEENT: No scleral icterus. Extraocular movements grossly intact. Moist buccal mucosa. NECK: Supple without lymphadenopathy. CHEST: Unlabored respirations. Equal bilateral excursions. CARDIOVASCULAR: Regular rate regular rhythm rhythm. Distal 2+ pulses. ABDOMEN: Soft, nondistended. Tender along the epigastrium and right upper quadrant. MUSCULOSKELETAL: No clubbing, cyanosis, or edema. NEURO: Cranial nerves II to XII within normal limits. No focal or lateralizing signs. PSYCH: Alert and oriented to person, place and time. SKIN: Well-perfused good skin turgor. ASSESSMENT: 1. Epigastric and right upper quadrant abdominal pain 2. Chronic cholecystitis 3. Symptomatic gallstones. PLAN: 1. Will need a robotic cholecystectomy possible open. Benefits and risks were described. She is elevated risk due to pre-existing heart disease and diabetes. 2. Heparin for DVT prophylaxis 5000 units. 3. Antibiotic prophylaxis. Past Medical History Past Medical History: Diabetes Mellitus, Hyperlipidemia, Thyroid Disorder Additional Past Medical History / Comment(s): HX OF MIGRAINES, protein in urine History of Any Multi-Drug Resistant Organisms: None Reported Past Surgical History: Adenoidectomy, Tonsillectomy Additional Past Surgical History / Comment(s): COLONOSCOPY; barium enema 03/2019 Past Anesthesia/Blood Transfusion Reactions: No Reported Reaction, Family History of Problems w/ Anesthesia, Motion Sickness Additional Past Anesthesia/Blood Transfusion Reaction / Comment(s): vertigo. mother hallucinates with anesthesia Smoking Status: Never smoker - Past Family History Father Family Medical History: Cancer Additional Family Medical History / Comment(s): colon-rectal Sister(s) Family Medical History: Cancer Additional Family Medical History / Comment(s): LUNG. brain tumor Medications and Allergies Home Medications Medication Instructions Recorded Confirmed Type Levothyroxine Sodium [Synthroid] 88 mcg PO DAILY 07/07/15 02/19/21 History Simvastatin [Zocor] 40 mg PO HS 07/07/15 02/19/21 History metFORMIN HCL [Glucophage] 500 mg PO HS 07/07/15 02/19/21 History ALPRAZolam [Xanax] 1 mg PO TID PRN 01/31/17 02/19/21 History Ergocalciferol (Vitamin D2) 50,000 unit PO WE 03/28/19 02/19/21 History [Vitamin D2] lisinopriL [Zestril] 2.5 mg PO HS 03/28/19 02/19/21 History Allergies Allergy/AdvReac Type Severity Reaction Status Date / Time No Known Allergies Allergy Verified 02/19/21 14:54
[~2021-02-23 07:38] MED LIST changes: +ACETAMINOPHEN TAB 500 MG TAB PO PRN; +DEXAMETHASONE SOD PHOSPHATE 4 MG/ML 1 ML VIAL IV ONE; +GABAPENTIN 300 MG CAP PO PRN; +HEPARIN SODIUM,PORCINE/PF 5,000 UNIT/0.5 ML SYRINGE SQ PRN; +INDOCYANINE GREEN 25 MG VIAL IV PRN; +LIDOCAINE 1% (10MG/ML) FOR IV START INTRADERMA PRN; -LIDOCAINE 1% 20 ML VIAL (10MG/ML) FOR IV START INTRADERMA PRN; +MELOXICAM 7.5 MG TAB PO PRN; +MIDAZOLAM 2 MG/2 ML VIAL IV PRN; +ONDANSETRON 4 MG/2 ML VIAL IVP ONE; -PROPOFOL 10 MG/ML 20 ML VIAL IV ONE; +SCOPOLAMINE 1.5MG/72HR PATCH TRANSDERM PRN; -fentaNYL (PF) 50 MCG/ML 2 ML AMP IV ONE
[2021-02-23 08:05] VITALS: TEMP 98.1
[2021-02-23 08:13] LABS: Glucose,Whole Blood 129 mg/dL (75-99)
[2021-02-23] MEDS ORDERED: MIDAZOLAM 2 MG/2 ML VIAL ONE (08:44)
[2021-02-23] MEDS ORDERED: SUCCINYLCHOLINE CHLORIDE 100 MG/5 ML SYR IV ONE (08:44)
[2021-02-23] MEDS ORDERED: NEOSTIGMINE 1 MG/ML 10 ML VIAL ONE (08:44)
[2021-02-23] MEDS ORDERED: PROPOFOL 10 MG/ML 20 ML VIAL IV ONE (08:44)
[2021-02-23] MEDS ORDERED: LIDOCAINE 1% INJ 10MG/ML (20 ML MDV) ONE (08:44)
[2021-02-23] MEDS ORDERED: KETOROLAC 15 MG/ML 1 ML VIAL ONE (08:44)
[2021-02-23] MEDS ORDERED: ONDANSETRON 4 MG/2 ML VIAL ONE (08:44)
[2021-02-23] MEDS ORDERED: INDOCYANINE GREEN 25 MG VIAL IV ONE (08:44)
[2021-02-23] MEDS ORDERED: ROCURONIUM 10 MG/ML (5 ML VIAL) IV ONE (08:44)
[2021-02-23] MEDS ORDERED: fentaNYL (PF) 50 MCG/ML 2 ML AMP ONE (08:44)
[2021-02-23] MEDS ORDERED: GLYCOPYRROLATE 0.2 MG/ML 2 ML VIAL ONE (08:44)
[2021-02-23] MEDS ORDERED: LIDOCAINE 1%-EPI 1:100,000 20 ML VIAL SQ ONE (08:49)
[2021-02-23] MEDS ORDERED: LACTATED RINGERS 1,000 ML IV ONE (09:40)
[2021-02-23] MEDS ORDERED: SIMETHICONE 80 MG CHEWABLE PO PRN (10:13)
--- NOTE | 2021-02-23 10:18 | P.OP ---
Date of Procedure: 02/23/21 Description of Procedure: SURGEON: PAU THOMAS MD PREOPERATIVE DIAGNOSES: 1. Symptomatic gallstones 2. Right upper quadrant abdominal pain 3. Hypertensive heart disease 4. Diabetes type 2, [id number] 5. Obesity due to excess calories, BMI 31.1 6. Hyperlipidemia 7. Hypothyroidism 8. Generalized anxiety disorder POSTOPERATIVE DIAGNOSES: 1. Symptomatic gallstones with chronic cholecystitis 2. Right upper quadrant abdominal pain with severe epigastric perritoneal adhesions 3. Hypertensive heart disease 4. Diabetes type 2, [id number] 5. Obesity due to excess calories, BMI 31.1 6. Hyperlipidemia 7. Hypothyroidism 8. Generalized anxiety disorder OPERATION: 1. Robotic-assisted da Rosana Xi laparoscopic lysis of adhesions 2. Robotic-assisted da Rosana Xi laparoscopic cholecystectomy, multiport with FIREFLY ESTIMATED BLOOD LOSS: 5 mL. SPECIMENS REMOVED: Gallbladder. COMPLICATIONS: None. OPERATIVE FINDINGS: 1. Severe epigastric peritoneal adhesions adding complexity to the case 2. Perigastric adhesions with chronic cholecystitis INDICATIONS: The patient is a 60-year-old female who presents with symptomatic gallstones. Robotic assisted laparoscopic approach was described. Benefits and risks of the procedure including but not limited to bleeding, infection, injury to the biliary tree was described. Informed consent was obtained. DESCRIPTION OF PROCEDURE: Patient was brought to the operating room, placed in supine position. After general induction, the abdomen had been prepped and draped in standard sterile fashion. The robotic da Rosana XI system was primed. After a timeout protocol was performed, the patient had been prepped and draped in standard sterile fashion. The patient was injected with indocyanine green. A 5 mm 0 degrees laparoscopic trocar entry was performed along the left upper quadrant. The abdomen insufflated to 15 mmHg pressure which was tolerated well. Diagnostic laparoscopy demonstrated no injury to bowel viscera or mesentery. The liver surface was unremarkable. Next, two 8 mm robotic ports were placed along the right upper abdomen. The camera 8-mm port was maintained along the epigastrium. Another 8 mm port was placed along the left upper abdominal wall after exchanging the 5 mm port. Please note that the ports were placed at least 10 to 15 cm away from the target anatomy of the gallbladder. The robot was docked along the left lateral abdomen. The patient was repositioned in reverse Trendelenburg position. Using a grasper for arm 3, a grasper for arm 4, including hook cautery for arm 1, the robotic system was docked and primed as described. Instruments were interchanged by the neurosurgical physician assistant including hook cautery, Bovie cautery and clip appliers. I had sat at the console. Moderate to severe epigastric adhesions were identified involving greater omentum to the abdominal wall. Vessel sealer was used to lyse adhesions for over 15 minutes. The gallbladder was scarred with peritoneal adhesions. Lysis of adhesions was performed to free the gallbladder from the surrounding tissues. Next attention was brought to the infundibulum and cystic structures. The infundibulum and cystic duct were dissected free from surrounding tissues. The cystic duct was isolated. FIREFLY was used to identify the cystic artery and cystic structures. A critical view of safety was obtained. Large PLASTIC clips were used throughout the entire case. Using a clip venetian blind worker, 2 clips were placed at the junction of the infundibulum and cystic duct. The cystic duct was divided between clips. Next, the cystic artery was similarly clipped and cauterized. Electro-Bovie cautery was used to remove the gallbladder from the hepatic fossa. Hemostasis was checked and found to be adequate. The robot was undocked. I re-scrubbed into the case. Using a 10 mm Endo Catch bag via the left upper quadrant incision, the specimen was removed from the abdominal cavity. All pneumoperitoneum instruments were evacuated from the abdominal cavity. The incisions were reapproximated using 4-0 Monocryl in an interrupted subcuticular fashion. Fascial defects were less than 8 mm in size. Please note along the trocar sites, local anesthetic was placed as a field block prior to insertion of all instruments. Liquid glue was applied to the skin. At the end of the procedure needle, sponge, and instrument count had been verified correct by the surgical assist. The patient was transferred to postanesthesia care unit in stable condition. Intraoperative films were shared with the patient's family. Plan - Discharge Summary Discharge Rx Participant: No New Discharge Prescriptions: New Simethicone [Gas-X] 125 mg PO AC-TID PRN #20 capsule PRN Reason: Abdominal Distention Ibuprofen [Motrin] 600 mg PO Q8HR PRN #30 tab PRN Reason: Pain Acetaminophen Tab [Tylenol Tab] 1,000 mg PO Q6HR PRN #30 tablet PRN Reason: Pain Continue metFORMIN HCL [Glucophage] 500 mg PO HS Simvastatin [Zocor] 40 mg PO HS Levothyroxine Sodium [Synthroid] 88 mcg PO DAILY ALPRAZolam [Xanax] 1 mg PO TID PRN PRN Reason: Anxiety lisinopriL [Zestril] 2.5 mg PO HS Ergocalciferol (Vitamin D2) [Vitamin D2] 50,000 unit PO WE Discharge Medication List Levothyroxine Sodium [Synthroid] 88 mcg PO DAILY 07/07/15 [History] Simvastatin [Zocor] 40 mg PO HS 07/07/15 [History] metFORMIN HCL [Glucophage] 500 mg PO HS 07/07/15 [History] ALPRAZolam [Xanax] 1 mg PO TID PRN 01/31/17 [History] Ergocalciferol (Vitamin D2) [Vitamin D2] 50,000 unit PO WE 03/28/19 [History] lisinopriL [Zestril] 2.5 mg PO HS 03/28/19 [History] Acetaminophen Tab [Tylenol Tab] 1,000 mg PO Q6HR PRN #30 tablet 02/23/21 [Rx] Ibuprofen [Motrin] 600 mg PO Q8HR PRN #30 tab 02/23/21 [Rx] Simethicone [Gas-X] 125 mg PO AC-TID PRN #20 capsule 02/23/21 [Rx] Follow up Appointment(s)/Referral(s): Pau Thomas MD [STAFF PHYSICIAN] - 02/27/21 Patient Instructions/Handouts: *[facility] - Laparoscopic Cholecystectomy Discharge Instructions, *[facility] - Managing Your Pain After Surgery Without Opioids, Low Fat Diet (ED) Activity/Diet/Wound Care/Special Instructions: Recommend low-fat diet for the next 2 days. No lifting over 10 pounds in 2 weeks until March 09March shower. No bath tub soaks for two weeks until March 09 Diet as tolerated. Use simethicone, Tylenol and ibuprofen or Aleve scheduled for the next 24-48 hours for best pain relief. Use ice along incisions for today to prevent swelling. Discharge Disposition: HOME SELF-CARE
[2021-02-23 10:22] LABS: Glucose,Whole Blood 189 mg/dL (75-99)
[2021-02-23] MEDS: HYDROmorphone 0.5 MG/0.5 ML SYRINGE IVP PRN ×2 (10:40→10:45)
[2021-02-23 11:42] VITALS: RESP 16
[2021-02-23 11:43] VITALS: BP 143/68; PULSE 71
== END 2021-02-23 11:44 | disposition home or self-care (01) ==
LOC: OR 07:38
PROVIDERS: ATTEND Surgery Plastic and Reconstructive Surgery
DX: K80.10 Calculus of gallbladder with chronic cholecystitis without obstruction (principal); I11.9 Hypertensive heart disease without heart failure; E11.9 Type 2 diabetes mellitus without complications; E78.5 Hyperlipidemia, unspecified; E03.9 Hypothyroidism, unspecified; E66.9 Obesity, unspecified; F32.9 Major depressive disorder, single episode, unspecified; F41.1 Generalized anxiety disorder; Z68.31 Body mass index [BMI] 31.0-31.9, adult; Z79.84 Long term (current) use of oral hypoglycemic drugs; Z79.890 Hormone replacement therapy; Z79.899 Other long term (current) drug therapy
CPT/HCPCS: 88304; 47563; J2250; J1100; J2710; J0690; J2405; J2001; J3010; J1885; J0330; J2704; J1170; J1644

== ENCOUNTER 2022-03-21 06:49 | Day surgery (SDC) | payer OTHER ==
[2022-03-19 15:58] VITALS: BMI 29.2
[~2022-03-21 06:49] MED LIST changes: -ACETAMINOPHEN TAB 500 MG TAB PO PRN; -DEXAMETHASONE SOD PHOSPHATE 4 MG/ML 1 ML VIAL IV ONE; -GABAPENTIN 300 MG CAP PO PRN; -HEPARIN SODIUM,PORCINE/PF 5,000 UNIT/0.5 ML SYRINGE SQ PRN; -INDOCYANINE GREEN 25 MG VIAL IV PRN; -LIDOCAINE 1% (10MG/ML) FOR IV START INTRADERMA PRN; -MELOXICAM 7.5 MG TAB PO PRN; -MIDAZOLAM 2 MG/2 ML VIAL IV PRN; -ONDANSETRON 4 MG/2 ML VIAL IVP ONE; -SCOPOLAMINE 1.5MG/72HR PATCH TRANSDERM PRN
[2022-03-21 07:24] VITALS: RESP 16; TEMP 97.8
[2022-03-21] MEDS ORDERED: PROPOFOL 10 MG/ML 20 ML VIAL IV ONE (07:37)
--- NOTE | 2022-03-21 07:37 | P.GSHP ---
History of Present Illness H&P Date: 03/21/22 CHIEF COMPLAINT: Colon screen HISTORY OF PRESENT ILLNESS: The patient is a 61-year-old female who presents for colon screen. Lower endoscopy was offered for further evaluation and management. PAST MEDICAL HISTORY: Please see list. PAST SURGICAL HISTORY: Please see list. MEDICATIONS: Please see list. ALLERGIES: Please see list. SOCIAL HISTORY: No illicit drug use FAMILY HISTORY: No reports of Crohn disease or ulcerative colitis. REVIEW OF ORGAN SYSTEMS: CONSTITUTIONAL: No reports of fevers or chills. PHYSICAL EXAM: VITAL SIGNS: Stable GENERAL: Well-developed pleasant in no acute distress. HEENT: No scleral icterus. Extraocular movements grossly intact. Moist buccal mucosa. NECK: Supple without lymphadenopathy. CHEST: Unlabored respirations. Equal bilateral excursions. CARDIOVASCULAR: Regular rate and rhythm. Distal 2+ pulses. ABDOMEN: Soft, nontender, nondistended. MUSCULOSKELETAL: No clubbing, cyanosis, or edema. ASSESSMENT: 1. Colon screen. PLAN: 1. Recommend proceeding with a lower endoscopy Past Medical History Past Medical History: Diabetes Mellitus, Hyperlipidemia, Hypertension, Thyroid Disorder Additional Past Medical History / Comment(s): HX OF MIGRAINES, NONE SINCE MENOPAUSE. Vertigo. History of Any Multi-Drug Resistant Organisms: None Reported Past Surgical History: Adenoidectomy, Cholecystectomy, Tonsillectomy Additional Past Surgical History / Comment(s): COLONOSCOPY, barium enema. Past Anesthesia/Blood Transfusion Reactions: No Reported Reaction, Motion Sickness Additional Past Anesthesia/Blood Transfusion Reaction / Comment(s): Vertigo. Mother hallucinates with anesthesia. Past Psychological History: Anxiety Smoking Status: Never smoker Past Alcohol Use History: Rare Additional Drug Use History / Comment(s): CBD for anxiety. Aware no use 24 hrs prior to procedure. - Past Family History Father Family Medical History: Cancer Additional Family Medical History / Comment(s): [place]-rectal cancer. Sister(s) Family Medical History: Cancer Additional Family Medical History / Comment(s): Lung cancer, brain tumor. Medications and Allergies Home Medications Medication Instructions Recorded Confirmed Type Levothyroxine Sodium [Synthroid] 88 mcg PO QAM 07/07/15 03/21/22 History Simvastatin [Zocor] 40 mg PO HS 07/07/15 03/21/22 History metFORMIN HCL [Glucophage] 500 mg PO HS 07/07/15 03/21/22 History ALPRAZolam [Xanax] 1 mg PO TID PRN 01/31/17 03/21/22 History Ergocalciferol (Vitamin D2) 50,000 unit PO WE 03/28/19 03/21/22 History [Vitamin D2] lisinopriL [Zestril] 2.5 mg PO HS 03/28/19 03/21/22 History Allergies Allergy/AdvReac Type Severity Reaction Status Date / Time No Known Allergies Allergy Verified 03/19/22 16:00 Surgical - Exam Vital Signs Temp Pulse Resp BP Pulse Ox 97.8 F 88 16 110/66 98 03/21/22 07:16 03/21/22 07:16 03/21/22 07:16 03/21/22 07:16 03/21/22 07:16
--- NOTE | 2022-03-21 08:09 | P.PCN ---
Date of Procedure: 03/21/22 Description of Procedure: PREOPERATIVE DIAGNOSIS: Personal history of colon polyps Family history malignant colon polyps Colonoscopy screening POSTOPERATIVE DIAGNOSIS: Tubular adenoma cecum Pandiverticulosis Sigmoid diverticulosis, severe with stricture OPERATION: Colonoscopy to the ileocecal valve and appendiceal orifice, cecum Colonoscopy with cold forceps biopsy SURGEON: Pau Thomas MD. ANESTHESIA: MAC. INDICATIONS: The patient is an 61-year-old male who presents family history of malignant colon polyps and personal history of colon polyps. Last colonoscopy less than 5 years. Benefits and risks were described and informed consent was obtained. DESCRIPTION OF PROCEDURE: The patient had undergone Sutab prep. The patient had been brought into the operating room and laid in the left lateral decubitus position. After adequate intravenous sedation, the rectum was examined with 2% lidocaine jelly. The prostate was unremarkable. No external hemorrhoids were encountered. The rectal tone was within normal limits. No lesions were palpated in the rectal vault. An Olympus colonoscope was advanced until the cecum, ileocecal valve and appendiceal orifice were clearly viewed. The prep was good. Santana diverticulosis with sigmoid diverticulosis was encountered. Mild to moderate stricture is found along the sigmoid colon with moderate redundancy. Abdominal wall pressure was required to advance the scope into the ascending colon. Colonic polyps were found and removed. No evidence of focal colitis was found. Retroflexion of the scope demonstrated grade 2 internal hemorrhoids without active bleeding or inflammation. The colon was desufflated. The patient had tolerated the procedure well. Withdrawal time was over 6 minutes. FINDINGS: Aronchick preparation quality scale 2 (1-5) Internal hemorrhoids, grade 1 No external hemorrhoids No arteriovenous malformations. Santana diverticulosis with sigmoid diverticulosis Mild to moderate stricture found along the sigmoid colon with moderate redundancy. Removal of 1 polyps: - Cold forceps biopsy at cecum, 5 mm polyp. No focal colitis. RECOMMENDATIONS: Repeat colonoscopy in 3 years, 2024 Plan - Discharge Summary Discharge Rx Participant: No New Discharge Prescriptions: Continue metFORMIN HCL [Glucophage] 500 mg PO HS Simvastatin [Zocor] 40 mg PO HS Levothyroxine Sodium [Synthroid] 88 mcg PO QAM ALPRAZolam [Xanax] 1 mg PO TID PRN PRN Reason: Anxiety lisinopriL [Zestril] 2.5 mg PO HS Ergocalciferol (Vitamin D2) [Vitamin D2] 50,000 unit PO WE Discharge Medication List Levothyroxine Sodium [Synthroid] 88 mcg PO QAM 07/07/15 [History] Simvastatin [Zocor] 40 mg PO HS 07/07/15 [History] metFORMIN HCL [Glucophage] 500 mg PO HS 07/07/15 [History] ALPRAZolam [Xanax] 1 mg PO TID PRN 01/31/17 [History] Ergocalciferol (Vitamin D2) [Vitamin D2] 50,000 unit PO WE 03/28/19 [History] lisinopriL [Zestril] 2.5 mg PO HS 03/28/19 [History] Follow up Appointment(s)/Referral(s): Pau Thomas MD [STAFF PHYSICIAN] - 04/09/22 Patient Instructions/Handouts: Diverticulosis Diet (GEN), Diverticulosis (GEN), Colorectal Polyps (GEN) Activity/Diet/Wound Care/Special Instructions: Repeat colonoscopy in 3 years, 2024 Discharge Disposition: HOME SELF-CARE
[2022-03-21 08:21] VITALS: BP 124/78; PULSE 69
== END 2022-03-21 08:44 | disposition home or self-care (01) ==
LOC: ORWHC2ENDO 06:49
PROVIDERS: ATTEND Surgery Plastic and Reconstructive Surgery
DX: Z12.11 Encounter for screening for malignant neoplasm of colon (principal); D12.0 Benign neoplasm of cecum; K57.30 Diverticulosis of large intestine without perforation or abscess without bleeding; E11.9 Type 2 diabetes mellitus without complications; E78.5 Hyperlipidemia, unspecified; F41.9 Anxiety disorder, unspecified; I10 Essential (primary) hypertension; Z79.84 Long term (current) use of oral hypoglycemic drugs; Z80.0 Family history of malignant neoplasm of digestive organs; Z86.010 Personal history of colon polyps; Z80.1 Family history of malignant neoplasm of trachea, bronchus and lung; Z83.71 Family history of colonic polyps; Z87.19 Personal history of other diseases of the digestive system; Z90.49 Acquired absence of other specified parts of digestive tract
CPT/HCPCS: 45380; 88305; J2704

== ENCOUNTER → 2022-05-10 | Outpatient (CLI) | payer OTHER ==
--- NOTE | 2022-05-14 08:04 | MM ---
Reason for Exam: Screening (asymptomatic). Last mammogram was performed 3 year(s) and 4 month(s) ago. Patient History: Menarche at age 13. First Full-Term at age 22. Postmenopausal. Patient used Hormonal Contraceptives for 20 years. Risk Values: Odalis 5 year model risk: 1.3%. NCI Lifetime model risk: 6.4%. Prior Study Comparison: 01/30/2011 Left Diagnostic Mammogram, [facility]. 11/21/2016 Bilateral Screening Mammogram, [facility]. 01/19/2019 Bilateral Screening Mammogram, [facility]. Tissue Density: There are scattered fibroglandular densities. Findings: Analyzed By CAD. There is no suspicious group of microcalcifications or new suspicious mass in either breast. Overall Assessment: Negative, BI-RAD 1 Management: Screening Mammogram of both breasts in 1 year. A clinical breast exam by your physician is recommended on an annual basis and results should be correlated with mammographic findings. Electronically signed and approved by: Russ Triana M.D. Radiologis
== END | disposition home or self-care (01) ==
LOC: RADMAMWWP 15:56
PROVIDERS: ATTEND Family Medicine
DX: Z12.31 Encounter for screening mammogram for malignant neoplasm of breast (principal); Z78.0 Asymptomatic menopausal state
CPT/HCPCS: 77063; 77067

== ENCOUNTER → 2022-07-18 | Outpatient (CLI) | payer OTHER | END | disposition home or self-care (01) | LOC: LABPAT 15:00 | PROVIDERS: ATTEND Surgery Plastic and Reconstructive Surgery | DX: Z53.9 Procedure and treatment not carried out, unspecified reason (principal) ==

== ENCOUNTER → 2022-07-18 | Outpatient (CLI) | payer OTHER ==
[2022-07-18 23:30] LABS: HGB 13.2 g/dL (12.0-15.0); MCH 30.9 pg (27.0-32.0); MCHC 33.8 g/dL (32.0-37.0); MCV 91.3 fL (80.0-97.0); Mean Platelet Volume 9.6 fL (9.5-12.2); NRBC Per 100 WBC 0 /100 WBCS (0.0-0.0); Platelet Count 327 X 10*3/uL (140-440); RBC 4.27 X 10*6/uL (4.10-5.20); WBC 7.13 X 10*3/uL (4.50-10.00)
[2022-07-19 01:13] LABS: African American GFR (CKD) 109.1 (60.0-200.0); Albumin 4.5 g/dL (3.8-4.9); Albumin/Globulin Ratio 1.91 (1.60-3.17); Anion Gap 13.5 mmol/L (10.00-18.00); BUN/Creat Ratio 13.71 Ratio (12.00-20.00); Blood Urea Nitrogen 9.2 mg/dL (9.0-27.0); Calcium 9.7 mg/dL (8.7-10.3); Globulin 2.3 g/dL (1.6-3.3); Non-African American GFR(CKD) 94.2 (60.0-200.0); Potassium 3.9 mmol/L (3.5-5.5); Total Bilirubin 0.3 mg/dL (0.30-1.20); Total Protein 6.8 g/dL (6.2-8.2)
[2022-07-19 01:14] LABS: T4, Free (Free Thyroxine) 1.4 ng/dL (0.800-1.800)
== END | disposition home or self-care (01) ==
LOC: LABWHC1 15:03
PROVIDERS: ATTEND Nurse Practitioner Family
DX: E03.9 Hypothyroidism, unspecified (principal)
CPT/HCPCS: 36415; 80053; 84439; 84443; 85027

== ENCOUNTER 2022-07-24 07:48 | Inpatient (IN) | payer OTHER ==
[~2022-07-24 07:48] MED LIST changes: -LACTATED RINGERS 1,000 ML IV SCH; +LIDOCAINE 1% (10MG/ML) FOR IV START INTRADERMA PRN
--- NOTE | 2022-07-24 07:54 | P.GSHP ---
History of Present Illness H&P Date: 07/24/22 CHIEF COMPLAINT: Colon screen HISTORY OF PRESENT ILLNESS: The patient is a 62-year-old female who presents for colon screen. Lower endoscopy was offered for further evaluation and management. PAST MEDICAL HISTORY: Please see list. PAST SURGICAL HISTORY: Please see list. MEDICATIONS: Please see list. ALLERGIES: Please see list. SOCIAL HISTORY: No illicit drug use FAMILY HISTORY: No reports of Crohn disease or ulcerative colitis. REVIEW OF ORGAN SYSTEMS: CONSTITUTIONAL: No reports of fevers or chills. PHYSICAL EXAM: VITAL SIGNS: Stable GENERAL: Well-developed pleasant in no acute distress. HEENT: No scleral icterus. Extraocular movements grossly intact. Moist buccal mucosa. NECK: Supple without lymphadenopathy. CHEST: Unlabored respirations. Equal bilateral excursions. CARDIOVASCULAR: Regular rate and rhythm. Distal 2+ pulses. ABDOMEN: Soft, nontender, nondistended. MUSCULOSKELETAL: No clubbing, cyanosis, or edema. ASSESSMENT: 1. Colon screen. PLAN: 1. Recommend proceeding with a lower endoscopy Past Medical History Past Medical History: Diabetes Mellitus, Thyroid Disorder Additional Past Medical History / Comment(s): diverticulitis HX OF MIGRAINES, NONE SINCE MENOPAUSE. Vertigo,protein in urine in past History of Any Multi-Drug Resistant Organisms: None Reported Past Surgical History: Adenoidectomy, Cholecystectomy, Tonsillectomy Additional Past Surgical History / Comment(s): COLONOSCOPY, barium enema. Past Anesthesia/Blood Transfusion Reactions: No Reported Reaction, Motion Sickness Additional Past Anesthesia/Blood Transfusion Reaction / Comment(s): Vertigo. Mother hallucinates with anesthesia. No hx blood transfusion Smoking Status: Never smoker - Past Family History Father Family Medical History: Cancer Additional Family Medical History / Comment(s): [place]-rectal cancer. Sister(s) Family Medical History: Cancer Additional Family Medical History / Comment(s): Lung cancer, brain tumor. Medications and Allergies Home Medications Medication Instructions Recorded Confirmed Type Levothyroxine Sodium [Synthroid] 100 mcg PO QAM 07/07/15 07/22/22 History ALPRAZolam [Xanax] 1 mg PO TID PRN 01/31/17 07/22/22 History Acetaminophen Tab [Tylenol] 650 mg PO Q6H PRN 07/22/22 07/22/22 History Allergies Allergy/AdvReac Type Severity Reaction Status Date / Time No Known Allergies Allergy Verified 07/22/22 15:24
[2022-07-24] MEDS: LACTATED RINGERS 1,000 ML IV SCH (08:11)
[2022-07-24 08:28] LABS: Glucose,Whole Blood 139 mg/dL (70-110)
[2022-07-24] MEDS ORDERED: PROPOFOL 10 MG/ML 20 ML VIAL IV ONE (09:16)
[2022-07-24] MEDS ORDERED: Antibiotics per Pharmacy 1 EACH MISC MISCELLANE PRN (09:19)
[2022-07-24] MEDS ORDERED: PEG 3350 (420 GM/BTL) + LYTES 4,000 ML BOTTLE PO ONE (09:19)
[2022-07-24] MEDS ORDERED: HEPARIN SODIUM,PORCINE/PF 5,000 UNIT/0.5 ML SYRINGE SQ PRN (09:19)
[2022-07-24] MEDS ORDERED: ALPRAZolam 1 MG TAB PO PRN (09:44)
--- NOTE | 2022-07-24 10:10 | P.HPADDEND ---
H&P Addendum H&P Addendum Date: 07/24/22 CHIEF COMPLAINT: Large bowel obstruction HISTORY OF PRESENT ILLNESS: The patient is a 62-year-old female who reports worsening lower abdominal pain in the past 2 weeks. She was recently diagnosed with sigmoid stricture 4 months ago. She reports worsening abdominal pain. PAST MEDICAL HISTORY: Please see list. PAST SURGICAL HISTORY: Please see list. MEDICATIONS: Please see list. ALLERGIES: Please see list. SOCIAL HISTORY: No illicit drug use FAMILY HISTORY: No reports of Crohn disease or ulcerative colitis. REVIEW OF ORGAN SYSTEMS: CONSTITUTIONAL: Denies any fever or chills. HEENT: Denies any trouble with vision or nosebleeds. No difficulty swallowing. LYMPHATIC: The patient denies any lumps and bumps around the neck. ENDOCRINE: Has hypothyroidism. ance. RESPIRATORY: Denies pneumonia. Denies any troubles with breathing or dyspnea on exertion. CARDIOVASCULAR: has hyperlipidemia. Recent cardiac assessment completed. GASTROINTESTINAL: Has chronic diverticulitis. Reports change in bowel habits. GENITOURINARY: Has increased urinary frequency. MUSCULOSKELETAL: Has back pain, stiffness, joint arthritis. NEUROLOGIC: Denies any numbness or tingling along the distal extremities. No seizure disorders or headaches. PSYCHIATRIC: has depressive disorder. Has generalized anxiety disorder. HEMATOLOGIC: Denies any abnormal bleeding or bruising. PHYSICAL EXAM: VITAL SIGNS: Stable GENERAL: Well-developed pleasant in no acute distress. HEENT: No scleral icterus. Extraocular movements grossly intact. Moist buccal mucosa. He is hard of hearing. NECK: Supple without lymphadenopathy. CHEST: Unlabored respirations. Equal bilateral excursions. CARDIOVASCULAR: Regular rate and rhythm. Distal 2+ pulses. ABDOMEN: Soft, mildly distended. Tender lower abdomen. MUSCULOSKELETAL: No clubbing, cyanosis, or edema. NERUO: Cranial nerves 2-12 grossly intact. PSYCH: Alert and oriented to person place and time. ASSESSMENT: 1. Large bowel obstruction sigmoid colon due to diverticulitis PLAN: 1. After colonoscopy, severe large bowel obstruction identified in the sigmoid colon. Recommend immediate CT abdomen and pelvis due to clinical change with acute abdominal pain and bowel obstruction 2. Benefits and risks of surgical robotic sigmoid resection was reviewed in detail. Robotic-assisted approach was also described. 3. Enhanced colon recovery program. 4. DVT prophylaxis. 5. Antibiotic prophylaxis. 6. Inpatient hospitalization greater than 2 nights. 7. CBC and CMP for diverticulitis
--- NOTE | 2022-07-24 10:29 | P.PCN ---
Date of Procedure: 07/24/22 Description of Procedure: PREOPERATIVE DIAGNOSIS: Sigmoid diverticulosis Lower abdominal pain Sigmoid stricture POSTOPERATIVE DIAGNOSIS: Sigmoid diverticulosis Lower abdominal pain Sigmoid stricture OPERATION: Colonoscopy to the sigmoid colon. SURGEON: Pau Thomas MD. ANESTHESIA: MAC. INDICATIONS: The patient is a 62-year-old female who presents for change in bowel habits and sigmoid stricture. Benefits and risks were described and informed consent was obtained. DESCRIPTION OF PROCEDURE: The patient had undergone bowel prep. She had been brought into the endoscopy room and laid in the left lateral decubitus position. After adequate intravenous sedation, the rectum was examined with 2% lidocaine jelly. No external hemorrhoids were encountered. The rectal tone was within normal limits. No lesions were palpated in the rectal vault. An Olympus colonoscope was advanced along the rectum to moderate narrowing at 20 cm of the sigmoid colon from the anal verge. The scope was exchanged for a pediatric colonoscope. Similar obstruction was confirmed at 20 cm from the anal verge. Despite maneuvers, the pediatric colonoscope could not advance beyond obstruction. The colon was desufflated. Internal hemorrhoids, grade 2 was found. The colonoscope was removed. Withdrawal time was over 6 minutes. FINDINGS: Aronchik preparation quality scale 2(1-5) Scope advanced to the sigmoid colon with severe stricture at 20 cm from the anal verge preventing further advancement of the scope RECOMMENDATIONS: 1. Recommend immediate CT of the abdomen and pelvis due to abdominal pain and severe stricture 2. Recommend sigmoid colectomy of colon obstruction
[2022-07-24 11:10] LABS: Basophils % (A) 1 %; Eosinophils # (A) 0.1 k/uL (0-0.7); Eosinophils % (A) 2 %; HCT 43.5 % (34.0-46.0); HGB 14.3 gm/dL (11.4-16.0); Lymphocytes # (A) 1.8 k/uL (1.0-4.8); Lymphocytes % (A) 26 %; MCH 30.3 pg (25.0-35.0); MCHC 32.9 g/dL (31.0-37.0); MCV 92.1 fL (80.0-100.0); Mean Platelet Volume 7.7; Monocytes # (A) 0.5 k/uL (0-1.0); Monocytes % (A) 7 %; Neutrophils # (A) 4.4 k/uL (1.3-7.7); Neutrophils % (A) 62 %; Platelet Count 372 k/uL (150-450); RBC 4.72 m/uL (3.80-5.40); RDW 11.6 % (11.5-15.5); WBC 7.1 k/uL (3.8-10.6)
[2022-07-24 11:41] LABS: ALT 14 U/L (4-34); AST 19 U/L (14-36); African American GFR (CKD) >90 (>60 ml/min/1.73 sqM); Albumin 4.2 g/dL (3.5-5.0); Alkaline Phosphatase 82 U/L (38-126); Anion Gap 11 mmol/L; Blood Urea Nitrogen 5 mg/dL (7-17); Calcium 9.5 mg/dL (8.4-10.2); Carbon Dioxide 25 mmol/L (22-30); Chloride 101 mmol/L (98-107); Glucose 121 mg/dL (74-99); Non-African American GFR(CKD) >90 (>60 ml/min/1.73 sqM); Potassium 4.3 mmol/L (3.5-5.1); Sodium 137 mmol/L (137-145); Total Bilirubin 0.4 mg/dL (0.2-1.3); Total Protein 6.6 g/dL (6.3-8.2)
[2022-07-24] MEDS ORDERED: NEOMYCIN 500 MG TAB PO SCH (13:00)
[2022-07-24] MEDS ORDERED: metroNIDAZOLE 500 MG TAB PO SCH (13:00)
--- NOTE | 2022-07-24 13:21 | CT ---
EXAMINATION TYPE: CT abdomen pelvis w con DATE OF EXAM: 07/24/2022 COMPARISON: None INDICATION: Failed colonoscopy, diverticulitis DLP: 1203 mGycm, Automated exposure control for dose reduction was used. CONTRAST: 70 mL of Isovue 300. Study performed with Oral Contrast TECHNIQUE: Axial images were obtained from above the diaphragm to the pubic rami in the axial plane a t 5 mm thick sections. Reconstructed images are reviewed on the computer in the coronal plane. FINDINGS: Limited CT sections are obtained the lung bases. The lung bases are clear. CT ABDOMEN: Liver: Normal Spleen: Normal Pancreas: Normal Adrenal glands: The adrenal glands are normal. Gallbladder: Not identified. Kidneys: No masses are evident. No hydronephrosis is present. No cysts are present. Delayed images were obtained through the kidneys, which remain unremarkable. Aorta: Normal Inferior vena cava: Normal. CT PELVIS: Multiple diverticuli within the sigmoid colon. There is a long segment of diffuse wall thickening wit h mild inflammatory change adjacent. Findings could be related to acute diverticulitis. Underlying ne oplasm is not excluded. Follow-up is recommended. This study is without oral contrast limiting bowel evaluation. Appendix: Not identified. Urinary bladder: Normal. Genitourinary structures: Uterus appears normal. Adnexa are unremarkable. Note is made the uterus is within close approximation to inflammatory changes from the suspected diverticulitis or neoplasm with in the sigmoid colon. Osseous structures: No suspicious lytic or sclerotic lesions are evident. IMPRESSIONS: 1. Long segment from the proximal to mid sigmoid colon of diffuse thickening, diverticular changes, and adjacent inflammatory changes suspicious for acute diverticulitis. Differential diagnosis also in cludes neoplasm. Follow-up is recommended.
[2022-07-24] MEDS: PATIENT'S OWN--NEOMYCIN 500 MG TAB PO SCH ×2 (13:36→14:56)
[2022-07-24] MEDS: PATIENT'S OWN--metroNIDAZOLE 500 MG TAB PO SCH ×3 (13:37→22:32)
[2022-07-24] MEDS: D5-0.45% NACL WITH KCL 20MEQ/L 1,000 ML IV SCH (14:56)
[2022-07-24] MEDS ORDERED: HYDROmorphone 1 MG/ML 1 ML SYRINGE IVP PRN (18:17)
--- NOTE | 2022-07-24 18:37 | P.PN ---
Subjective Progress Note Date: 07/24/22 CHIEF COMPLAINT: Acute diverticulitis HISTORY OF PRESENT ILLNESS: The patient is a 62-year-old female admitted with diverticulosis with sigmoid colon stricture. She underwent colonoscopy which features of obstruction of the sigmoid colon. Patient later confirmed having over 1 week history of lower abdominal pain with cramping diarrhea and constipation. She reports inability to tolerate solid foods. She has tried liquid diet with minimal improvement of her symptoms. Additional studies including computed tomography scan were obtained due to change in clinical history. Patient reports worsening symptoms this evening after her computed tomography scan and start of her bowel prep. REVIEW OF ORGAN SYSTEMS: CONSTITUTIONAL: Denies any fever or chills. GASTROINTESTINAL: Reports change in bowel habits. GENITOURINARY: Has increased urinary frequency. MUSCULOSKELETAL: Has back pain, stiffness, joint arthritis. PHYSICAL EXAM: VITAL SIGNS: Stable GENERAL: Well-developed pleasant in no acute distress. HEENT: No scleral icterus. Extraocular movements grossly intact. Moist buccal mucosa. NECK: Supple without lymphadenopathy. CHEST: Unlabored respirations. Equal bilateral excursions. CARDIOVASCULAR: Regular rate and rhythm. Distal 2+ pulses. ABDOMEN: Tender lower abdomen. Minimal distention. Soft. MUSCULOSKELETAL: No clubbing, cyanosis, or edema. NERUO: Cranial nerves 2-12 grossly intact. PSYCH: Alert and oriented to person place and time. LABS: Reviewed. CBC normal. STUDIES: CT of the abdomen and pelvis and up in a reviewed demonstrating acute diverticulitis with localized of the sigmoid colon. No gross free air. REPORT: Radiology report confirms acute long segment diverticulitis of the sigmoid colon. ASSESSMENT: 1. Acute diverticulitis with left lower quadrant abdominal pain PLAN: 1. She reports worsening symptoms following her computed tomography scan. Will obtain acute abdominal series to exclude acute perforation of viscus. 2. Bowel prep discontinued due to worsening abdominal pain. IV Zosyn started for antibiotics for acute diverticulitis 3. Inpatient hospitalization for acute diverticulitis over 2 nights. 4. Likely elective surgery canceled due to acute diverticulitis as risk for descending colostomy described. 5. In presence of diffuse peritonitis, exploratory laparotomy with descending colostomy creation also reviewed 6. Decreased diet to ice chips and popsicles 7. Zofran and IV Tylenol and Dilaudid ordered 8. Care plan reviewed and discussed with patient with conservative management and IV antibiotics for acute diverticulitis. Objective - Vital Signs Vital signs: Vital Signs Temp 97.9 F 07/24/22 14:00 Pulse 80 07/24/22 14:00 Resp 16 07/24/22 14:00 BP 124/78 07/24/22 14:00 Pulse Ox 98 07/24/22 14:00 FiO2 Intake & Output 07/23/22 07/24/22 07/24/22 18:59 06:59 18:59 Intake Total 400 Balance 400 Weight 71.6 kg Intake: IV 200 Intake, IV Titration 200 Amount D5-0.45% NaCl with KCl 200 20Meq/l 1,000 ml @ 100 mls/hr IV .Q10H [facility] Rx#: [id number] - Labs CBC & Chem 7: 07/24/22 08:25 07/24/22 11:00 Labs: Abnormal Lab Results - Last 24 Hours (Table) 07/24/22 07/24/22 Range/Units 08:23 11:00 BUN 5 L (7-17) mg/dL Glucose 121 H (74-99) mg/dL POC Glucose (mg/dL) 139 H (70-110) mg/dL
--- NOTE | 2022-07-24 18:53 | XR ---
EXAMINATION TYPE: XR abdomen acute w cxr DATE OF EXAM: 07/24/2022 COMPARISON: Chest x-ray 07/07/2015 HISTORY: Diverticulitis. Abdominal pain TECHNIQUE: 4 views FINDINGS: Heart and mediastinum are normal. Lungs are clear. Diaphragm is normal. There are no hilar masses. Costophrenic angles are clear. There is no sign of intestinal obstruction or pneumoperitoneum. Fecal pattern is normal. No evidence of a mass. No pathologic calcifications over the kidneys. There is some contrast in the urinary bladd er. Bony structures are intact IMPRESSION: Nonacute abdomen. Normal chest. Chest x-ray unchanged compared to the old exam.
--- NOTE | 2022-07-24 20:04 | P.PN ---
Progress Note - Text Progress Note Date: 07/24/22 Abdominal x-ray reviewed demonstrating no free air. No perforation. This is my independent interpretation. Abdominal x-ray report demonstrated nonobstructive bowel gas pattern nonacute abdomen. Patient reevaluated this evening and reports abdominal pain now resolved. She feels well. She is ambulating in the hallway. Overall, patient wishes to proceed with surgery with diagnostic laparoscopy and possible colectomy. Oral antibiotics discontinued with IV Zosyn started. IV fluid hydration.
[2022-07-24] MEDS ORDERED: TEMAZEPAM 15 MG CAP PO ONE (21:00)
[2022-07-24] MEDS: PIPERACILLIN-TAZOBACTAM 3.375 GM in SODIUM CHLORIDE 0.9% 100 ML IVPB SCH (21:39)
[2022-07-24] MEDS: ACETAMINOPHEN IV (For NPO) 1,000 MG in EMPTY BAG 1 BAG IVPB SCH (21:48)
[2022-07-24] MEDS: SIMETHICONE 40 MG/0.6 ML DROPS 2,000 MG/30 ML BOTTLE PO SCH ×2 (21:59→22:29)
[2022-07-25] MEDS: ACETAMINOPHEN IV (For NPO) 1,000 MG in EMPTY BAG 1 BAG IVPB SCH ×3 (01:44→12:59)
[2022-07-25] MEDS: D5-0.45% NACL WITH KCL 20MEQ/L 1,000 ML IV SCH ×2 (02:17→12:58)
[2022-07-25] MEDS: PIPERACILLIN-TAZOBACTAM 3.375 GM in SODIUM CHLORIDE 0.9% 100 ML IVPB SCH ×3 (02:22→18:15)
[2022-07-25] MEDS ORDERED: metroNIDAZOLE-NS PMX 500 MG in SALINE 1 100ML.BAG IVPB PRN (05:00)
[2022-07-25] MEDS ORDERED: HEPARIN SODIUM,PORCINE/PF 5,000 UNIT/0.5 ML SYRINGE SQ PRN (05:00)
[2022-07-25 05:53] LABS: Basophils % (A) 1 %; Eosinophils # (A) 0.1 k/uL (0-0.7); Eosinophils % (A) 2 %; HGB 13.1 gm/dL (11.4-16.0); Lymphocytes # (A) 1.6 k/uL (1.0-4.8); Lymphocytes % (A) 27 %; MCH 31.2 pg (25.0-35.0); MCHC 33.5 g/dL (31.0-37.0); Mean Platelet Volume 7.5; Monocytes # (A) 0.4 k/uL (0-1.0); Monocytes % (A) 7 %; Neutrophils # (A) 3.6 k/uL (1.3-7.7); Neutrophils % (A) 61 %; Platelet Count 334 k/uL (150-450)
[2022-07-25 06:13] LABS: African American GFR (CKD) >90 (>60 ml/min/1.73 sqM); Anion Gap 10 mmol/L; Blood Urea Nitrogen 2 mg/dL (7-17); Calcium 8.9 mg/dL (8.4-10.2); Carbon Dioxide 20 mmol/L (22-30); Chloride 105 mmol/L (98-107); Glucose 148 mg/dL (74-99); Non-African American GFR(CKD) >90 (>60 ml/min/1.73 sqM); Potassium 4.2 mmol/L (3.5-5.1); Sodium 135 mmol/L (137-145)
[2022-07-25] MEDS ORDERED: ALVIMOPAN 12 MG CAPSULE PO PRN (07:00)
[2022-07-25] MEDS ORDERED: MELOXICAM 7.5 MG TAB PO PRN (07:00)
[2022-07-25] MEDS ORDERED: ACETAMINOPHEN TAB 500 MG TAB PO PRN ×2 (07:00→14:27)
[2022-07-25] MEDS: LEVOTHYROXINE 100 MCG TAB PO SCH (08:01)
[2022-07-25] MEDS ORDERED: ONDANSETRON 4 MG/2 ML VIAL IVP ONE (09:02)
[2022-07-25] MEDS ORDERED: MELOXICAM 7.5 MG TAB PO ONE (09:03)
[2022-07-25] MEDS ORDERED: DEXAMETHASONE SOD PHOSPHATE 4 MG/ML 1 ML VIAL IVP ONE (09:03)
[2022-07-25 09:14] LABS: Glucose,Whole Blood 157 mg/dL (70-110)
[2022-07-25] MEDS ORDERED: IV FLUID CONTINUATION 1,000 ML IV ONE (09:14)
[2022-07-25] MEDS ORDERED: fentaNYL (PF) 50 MCG/ML 2 ML AMP IVP ONE (09:34)
[2022-07-25] MEDS ORDERED: MIDAZOLAM 2 MG/2 ML VIAL IVP ONE (09:34)
[2022-07-25] MEDS ORDERED: LACTATED RINGERS 1,000 ML IV ONE ×2 (09:53→10:46)
[2022-07-25] MEDS ORDERED: ALVIMOPAN 12 MG CAPSULE PO ONE (09:54)
[2022-07-25] MEDS ORDERED: SCOPOLAMINE 1 MG/72 HR PATCH TRANSDERM ONE (09:54)
[2022-07-25] MEDS ORDERED: fentaNYL (PF) 50 MCG/ML 2 ML AMP ONE (10:00)
[2022-07-25] MEDS ORDERED: LIDOCAINE 2% INJ 20 MG/ML (2 ML VIAL) ONE (10:00)
[2022-07-25] MEDS ORDERED: PROPOFOL 10 MG/ML 20 ML VIAL IV ONE (10:00)
[2022-07-25] MEDS ORDERED: ROCURONIUM 10 MG/ML (5 ML VIAL) IV ONE (10:00)
[2022-07-25] MEDS ORDERED: SUCCINYLCHOLINE CHLORIDE 200 MG/10 ML VIAL IV ONE (10:00)
[2022-07-25] MEDS ORDERED: MIDAZOLAM 2 MG/2 ML VIAL ONE (10:00)
[2022-07-25] MEDS ORDERED: ROPIVACAINE 5 MG/ML 30 ML VIAL ONE (10:00)
[2022-07-25] MEDS ORDERED: SODIUM CHLORIDE 0.9% (PF) 10 ML VIAL ONE (10:00)
[2022-07-25] MEDS ORDERED: BUPIVACAIN-EPI 0.25%-1:200,000 30 ML VIAL SQ ONE ×2 (10:04→10:58)
[2022-07-25] MEDS: SIMETHICONE 40 MG/0.6 ML DROPS 2,000 MG/30 ML BOTTLE PO SCH ×4 (10:51→20:47)
--- NOTE | 2022-07-25 10:51 | P.ANPRN ---
Procedure Note - Anesthesia - Nerve Block Performed Bilateral Erector Spinae Time Out Performed: Yes (:) Date of Procedure: 07/25/22 Procedure Start Time: Procedure Stop Time: Location of Patient: PreOp Indication: Acute Post-Operative Pain, Requested by Surgeon (Dr Arzate) Sedation Type: Sedate with meaningful contact maintained Preparation: Sterile Prep Position: Prone Catheter: None Needle Types: Pajunk Needle Gauge: 21 Ultrasound used to visualize needle placement: Yes Ultrasound used to observe medication spread: Yes Injectate: 0.5% Ropivacaine (see comment for volume) (15cc + 10cc PF Normal saline each side) Blood Aspirated: No Pain Paresthesia on Injection Noted: No Resistance on Injection: Normal Image Stored and Saved: Yes Events: Uneventful and Well Tolerated
[2022-07-25] MEDS: LACTATED RINGERS 1,000 ML IV SCH ×2 (10:52→22:17)
[2022-07-25] MEDS ORDERED: ONDANSETRON 4 MG/2 ML VIAL IVP PRN (12:11)
--- NOTE | 2022-07-25 12:25 | P.OP ---
Date of Procedure: 07/25/22 Description of Procedure: SURGEON: GABI LACEY MD PREOPERATIVE DIAGNOSES: 1. Sigmoid diverticulitis with stricture 2. Generalized anxiety disorder 3. Hypothyroidism POSTOPERATIVE DIAGNOSES: 1. Sigmoid diverticulitis, acute with stricture 2. Generalized anxiety disorder 3. Hypothyroidism OPERATION: 1. Robotic low anterior resection aborted for diagnostic laparoscopy Anesthesia: GETA, local, regional Estimated Blood Loss (ml): 1 Pathology: None Condition: stable Disposition: floor COMPLICATIONS: None. Operative Findings: 1. Acute inflammatory changes identified along the sigmoid colon descending colon with adhesion of sigmoid colon to the uterus and left ovary. 2. Dense thick inflammatory tissue involving the sigmoid mesentery, sigmoid colon INDICATIONS: The patient is a 62-year-old female who presented with sigmoid stricture due to diverticulitis. She had developed subacut abdominal pain in the past 1 week. and computed tomography of the abdomen pelvis demonstrated sigmoid diverticulitis. Prior to surgery, patient reports abdominal pain had improved. Patient was offered diagnostic laparoscopy with possible colectomy pending findings of acute diverticulitis versus resolved disease. Benefits and risks of surgical intervention was described in detail including infection, injury to the ureter, colostomy creation, possibility for additional surgery was discussed at length. Informed consent was obtained. All questions of the patient and family were answered. DESCRIPTION: Earlier the patient had undergone a bowel prep using the enhanced colon recovery program. The patient was transferred to the operating room and placed supine. After general induction, the abdomen was prepped and draped in standard sterile fashion. Ioban was placed along the abdomen to minimize any contamination of skin floor. A Marina catheter was placed. After a timeout protocol was performed, attention was then brought to the left upper quadrant whereby a 0 degree 5 mm laparoscopic trocar entry was performed. The abdominal cavity was entered and insufflated to 15 mmHg pressure, which was tolerated well. Diagnostic laparoscopy no diffuse purulent peritonitis. Next a robotic 12-mm trocar was placed along the epigastric abdominal wall 20 cm superior from the pelvis. The 5 mm trocar was exchanged for a 12 mm trocar. The patient was positioned in steep Trendelenburg position at 21-degrees. Using atraumatic graspers the sigmoid mesentery and colon were palpated with de nse concrete adhesions involving the descending colon, sigmoid colon. Dense adhesions involving the left ovary and dome of the uterus was found. With this finding, proceeding with surgery would increase her risk for blood loss, complications, colostomy creation, open surgery which the patient had wanted to avoid. As a result, the procedure was aborted. Next all pneumoperitoneum was evacuated from the abdominal cavity. The 8-mm trocar sites were reapproximated using 4-0 Monocryl in an interrupted subcuticular fashion. Local anesthetic was infiltrated to all wounds for postop analgesia. All incisions were also cleansed with diluted hydrogen peroxide. Liquid glue was applied to the rest of the skin incisions. The patient had tolerated the procedure well. The patient was extubated successfully. The patient was transferred to the postanesthesia care unit in stable condition. Intraoperative findings were described in detail to the patient's family including the patient upon awakening.
[2022-07-25] MEDS: KETOROLAC 15 MG/ML 1 ML VIAL IVP SCH ×2 (13:01→18:10)
[2022-07-25] MEDS: SODIUM CHLORIDE 0.9% 1,000 ML IV SCH (13:02)
[2022-07-26] MEDS: KETOROLAC 15 MG/ML 1 ML VIAL IVP SCH ×3 (00:58→11:55)
[2022-07-26] MEDS: SODIUM CHLORIDE 0.9% 1,000 ML IV SCH ×2 (01:02→10:59)
[2022-07-26] MEDS: PIPERACILLIN-TAZOBACTAM 3.375 GM in SODIUM CHLORIDE 0.9% 100 ML IVPB SCH ×2 (02:47→10:58)
[2022-07-26] MEDS: LEVOTHYROXINE 100 MCG TAB PO SCH (06:21)
[2022-07-26 09:07] LABS: Basophils # (A) 0.02 X 10*3/uL (0.00-0.10); Basophils % (A) 0.2 %; Eosinophils # (A) 0.03 X 10*3/uL (0.04-0.35); Eosinophils % (A) 0.3 %; HCT 37.4 % (37.2-46.3); HGB 12.4 g/dL (12.0-15.0); Immature Grans, Automated 0.3 %; Lymphocytes # (A) 2.16 X 10*3/uL (0.90-5.00); Lymphocytes % (A) 22.4 %; MCH 29.8 pg (27.0-32.0); MCHC 33.2 g/dL (32.0-37.0); MCV 89.9 fL (80.0-97.0); Mean Platelet Volume 9.2 fL (9.5-12.2); Monocytes # (A) 0.61 X 10*3/uL (0.20-1.00); Monocytes % (A) 6.3 %; NRBC Per 100 WBC 0 /100 WBCS (0.0-0.0); Neutrophils # (A) 6.78 X 10*3/uL (1.80-7.70); Neutrophils % (A) 70.5 %; Platelet Count 357 X 10*3/uL (140-440); RBC 4.16 X 10*6/uL (4.10-5.20); RDW 11.4 % (11.5-14.5); WBC 9.63 X 10*3/uL (4.50-10.00)
[2022-07-26] MEDS: SIMETHICONE 40 MG/0.6 ML DROPS 2,000 MG/30 ML BOTTLE PO SCH ×2 (09:37→12:57)
[2022-07-26 12:26] VITALS: BMI 28.8
--- NOTE | 2022-07-26 12:30 | P.DS ---
Providers Date of admission: 07/24/22 18:16 Expected date of discharge: 07/26/22 Attending physician: Pau Thomas Primary care physician: [facility] Course: Discharge diagnosis 1. Sigmoid diverticulitis, acute with stricture 2. Generalized anxiety disorder 3. Hypothyroidism Hospital course The patient is a 62-year-old female who presented with sigmoid stricture due to diverticulitis. She had developed subacut abdominal pain in the past 1 week. and computed tomography of the abdomen pelvis demonstrated sigmoid diverticulitis. Prior to surgery, patient reports abdominal pain had improved. Patient was offered diagnostic laparoscopy with possible colectomy pending findings of acute diverticulitis versus resolved disease. Robotic lower anterior resection aborted for diagnostic laparoscopy due to concrete adhesions involving this ascending colon, sigmoid colon left ovary and uterus. With this finding, proceeding with surgery would increase her risk for blood loss, complications, colostomy creation, open surgery which the patient had wanted to avoid. As a result, the procedure was aborted. Patient is currently sitting up at bedside chair. She is tolerating a full liquid diet. Denies any abdominal pain. She did have a bowel movement this morning and flatus. She has been up and ambulating. She is afebrile. She is stable for discharge. Physician Music Agent note has been reviewed by physician. Signing provider agrees with the documented findings, assessment, and plan of care. Please see additional comments below. Patient presented with lower abdominal pain with features consistent with acute diverticulitis. CT of the abdomen and pelvis confirmed acute diverticulitis. As patient's symptoms immediately proved, patient offered diagnostic laparoscopy versus colectomy pending intraoperative findings. Intraoperative findings demonstrated dense inflammatory tissue involving the descending colon and sigmoid colon with adherence to the ovary and uterus left pelvis. As a result, procedure aborted. Antibiotics had continued during her hospitalization for acute diverticulitis. Prior to discharge, 10 days oral antibiotics prescribed including low fiber/low residue diet. Follow-up of as outpatient described. All questions addressed. Patient Condition at Discharge: Stable Plan - Discharge Summary Discharge Rx Participant: No New Discharge Prescriptions: New Acetaminophen Tab [Tylenol] 1,000 mg PO Q6HR PRN #30 tablet PRN Reason: Pain Ciprofloxacin HCl [Cipro] 500 mg PO Q12HR 10 Days #20 tab metroNIDAZOLE [Flagyl] 500 mg PO TID 10 Days #30 tab Simethicone 40 mg/0.6 ml Drops [Mylicon Drops] 80 mg PO PCHS ml Continue Levothyroxine Sodium [Synthroid] 100 mcg PO QAM ALPRAZolam [Xanax] 1 mg PO TID PRN PRN Reason: Anxiety Discontinued Acetaminophen Tab [Tylenol] 650 mg PO Q6H PRN PRN Reason: Pain Discharge Medication List Levothyroxine Sodium [Synthroid] 100 mcg PO QAM 07/07/15 [History] ALPRAZolam [Xanax] 1 mg PO TID PRN 01/31/17 [History] Acetaminophen Tab [Tylenol] 1,000 mg PO Q6HR PRN #30 tablet 07/26/22 [Rx] Ciprofloxacin HCl [Cipro] 500 mg PO Q12HR 10 Days #20 tab 07/26/22 [Rx] Simethicone 40 mg/0.6 ml Drops [Mylicon Drops] 80 mg PO PCHS ml 07/26/22 [Rx] metroNIDAZOLE [Flagyl] 500 mg PO TID 10 Days #30 tab 07/26/22 [Rx] Follow up Appointment(s)/Referral(s): [facility] [REFERRING] - As Needed (Call to see if you qualify for any assistance. ) Pau Thomas MD [STAFF PHYSICIAN] - 07/30/22 3:45 pm Patient Instructions/Handouts: *Surgery [facility] - Scopalamine Patch Instructions, Low Fiber Diet (DC) Activity/Diet/Wound Care/Special Instructions: Discharge diet low fiber Discharge Disposition: HOME SELF-CARE
[2022-07-26 13:07] VITALS: BP 120/70; PULSE 90; RESP 12; TEMP 97.6
== END 2022-07-26 14:35 | disposition home or self-care (01) | DRG 345 ==
LOC: ORWHC2ENDO 07:48 → 4SSUR 09:35 → ORWHC2ENDO 18:16 → 4SSUR 18:16
PROVIDERS: ADMIT Surgery Plastic and Reconstructive Surgery; ATTEND Surgery Plastic and Reconstructive Surgery
PROC: 0DJD8ZZ Inspection of Lower Intestinal Tract, Via Natural or Artificial Opening Endoscopic (ICD-10-PCS; 2022-07-24)
PROC: 0DJD4ZZ Inspection of Lower Intestinal Tract, Percutaneous Endoscopic Approach (ICD-10-PCS; principal; 2022-07-25 09:40)
PROC: 8E0W4CZ Robotic Assisted Procedure of Trunk Region, Percutaneous Endoscopic Approach (ICD-10-PCS; principal; 2022-07-25 09:40)
DX: K57.32 Diverticulitis of large intestine without perforation or abscess without bleeding (principal); K56.699 Other intestinal obstruction unspecified as to partial versus complete obstruction; K66.0 Peritoneal adhesions (postprocedural) (postinfection); E03.9 Hypothyroidism, unspecified; E11.9 Type 2 diabetes mellitus without complications; F41.1 Generalized anxiety disorder; Z53.9 Procedure and treatment not carried out, unspecified reason; Z79.890 Hormone replacement therapy; Z80.0 Family history of malignant neoplasm of digestive organs; Z80.1 Family history of malignant neoplasm of trachea, bronchus and lung; Z71.3 Dietary counseling and surveillance
CPT/HCPCS: 45330; 64999; 74022; 74177; 80048; 80053; 85025; 86850; 86900; 86901

== ENCOUNTER → 2022-10-17 | Outpatient (CLI) | payer OTHER ==
[2022-10-17 08:54] LABS: African American GFR (CKD) >90 (>60 ml/min/1.73 sqM); Blood Urea Nitrogen 13 mg/dL (7-17); Non-African American GFR(CKD) >90 (>60 ml/min/1.73 sqM)
--- NOTE | 2022-10-17 09:34 | CT ---
EXAMINATION TYPE: CT abdomen pelvis w con DATE OF EXAM: 10/17/2022 COMPARISON: 07/24/2022 HISTORY: Diverticulitis CT DLP: 1175 mGycm CONTRAST: CT scan of the abdomen and pelvis is performed with Oral Contrast and with IV Contrast, patient injec luis with 70 mL of Isovue 300. FINDINGS: LUNG BASES-: No visible nodule. No infiltrate. LIVER/GB: The gallbladder is surgically absent. No space occupying hepatic lesion. Biliary tree is of normal caliber. PANCREAS: No inflammation. No distinct mass. SPLEEN: No splenic enlargement. No lesion seen. ADRENALS: No nodule. No thickening. KIDNEYS/BLADDER: No hydronephrosis. No nephrolithiasis. No distinct renal mass. Urinary bladder g rossly unremarkable. BOWEL: Mild wall thickening of jejunal loops could reflect enteritis. Correlate clinically.No inflamm ation. Sigmoid diverticulosis without diverticulitis. Incidental cecal valve lipoma. Nonvisualization of the appendix. GENITAL ORGANS: No gross abnormality. LYMPH NODES: No greater than 1cm abdominal or pelvic lymph nodes are appreciated. AORTA: No significant abnormality. OSSEOUS STRUCTURES: No significant abnormality is seen. OTHER: No significant additional abnormality is seen. IMPRESSION: 1. Sigmoid diverticulosis without diverticulitis. 2. Mild wall thickening of jejunal loops could reflect enteritis. Correlate clinically.
== END | disposition home or self-care (01) ==
LOC: RADCTMAIN 07:17
PROVIDERS: ATTEND Surgery Plastic and Reconstructive Surgery
DX: K57.30 Diverticulosis of large intestine without perforation or abscess without bleeding (principal); K63.89 Other specified diseases of intestine
CPT/HCPCS: 82565; 84520; 74177; 36415; Q9967

== ENCOUNTER → 2022-11-01 | Outpatient (CLI) | payer OTHER ==
[2022-11-01 15:12] LABS: HCT 40.9 % (37.2-46.3); HGB 13.8 g/dL (12.0-15.0); MCH 29.8 pg (27.0-32.0); MCHC 33.7 g/dL (32.0-37.0); MCV 88.3 fL (80.0-97.0); Mean Platelet Volume 9.3 fL (9.5-12.2); NRBC Per 100 WBC 0 /100 WBCS (0.0-0.0); Platelet Count 260 X 10*3/uL (140-440); RBC 4.63 X 10*6/uL (4.10-5.20); RDW 12.2 % (11.5-14.5); WBC 3.75 X 10*3/uL (4.50-10.00)
[2022-11-01 15:28] LABS: African American GFR (CKD) 109.8 (60.0-200.0); Albumin 4.5 g/dL (3.8-4.9); Albumin/Globulin Ratio 2.03 (1.60-3.17); BUN/Creat Ratio 13.04 Ratio (12.00-20.00); Blood Urea Nitrogen 8.6 mg/dL (9.0-27.0); Calcium 9.7 mg/dL (8.7-10.3); Carbon Dioxide 25.6 mmol/L (20.0-27.5); Globulin 2.2 g/dL (1.6-3.3); Non-African American GFR(CKD) 94.8 (60.0-200.0); Potassium 4.3 mmol/L (3.5-5.5); Total Bilirubin 0.6 mg/dL (0.30-1.20); Total Protein 6.8 g/dL (6.2-8.2)
== END | disposition home or self-care (01) ==
LOC: LABPAT 08:19
PROVIDERS: ATTEND Surgery Plastic and Reconstructive Surgery
DX: Z01.812 Encounter for preprocedural laboratory examination (principal)
CPT/HCPCS: 80053; 85027

== ENCOUNTER 2022-11-08 07:15 | Inpatient (IN) | payer OTHER ==
[2022-11-07 09:06] VITALS: BMI 29.2
[~2022-11-08 07:15] MED LIST changes: +ACETAMINOPHEN TAB 500 MG TAB PO PRN; +ALVIMOPAN 12 MG CAPSULE PO PRN; +DEXAMETHASONE SOD PHOSPHATE 4 MG/ML 1 ML VIAL IV ONE; +HEPARIN SODIUM,PORCINE/PF 5,000 UNIT/0.5 ML SYRINGE SQ PRN; +HYDROmorphone 0.5 MG/0.5 ML SYRINGE IVP PRN; -LIDOCAINE 1% (10MG/ML) FOR IV START INTRADERMA PRN; +MIDAZOLAM 2 MG/2 ML VIAL IV PRN; +ONDANSETRON 4 MG/2 ML VIAL IVP ONE; +SCOPOLAMINE 1 MG/72 HR PATCH TRANSDERM ONE; +metroNIDAZOLE-NS PMX 500 MG in SALINE 1 100ML.BAG IVPB PRN
[2022-11-08] MEDS ORDERED: Antibiotics per Pharmacy 1 EACH MISC MISCELLANE PRN (07:31)
--- NOTE | 2022-11-08 07:31 | P.GSHP ---
History of Present Illness H&P Date: 11/08/22 CHIEF COMPLAINT: Diverticulitis HISTORY OF PRESENT ILLNESS: The patient is a 62-year-old female who reports worsening lower abdominal pain from diverticulitis. She has personal history of sigmoid stricture including change in bowel habits. She has recurrent attacks of diverticulitis. She presents today for surgical excision, sigmoid colectomy/low anterior resection. PAST MEDICAL HISTORY: Please see list. PAST SURGICAL HISTORY: Please see list. MEDICATIONS: Please see list. ALLERGIES: Please see list. SOCIAL HISTORY: No illicit drug use FAMILY HISTORY: No reports of Crohn disease or ulcerative colitis. REVIEW OF ORGAN SYSTEMS: CONSTITUTIONAL: Denies any fever or chills. HEENT: Denies any trouble with vision or nosebleeds. No difficulty swallowing. LYMPHATIC: The patient denies any lumps and bumps around the neck. ENDOCRINE: Has hypothyroidism. ance. RESPIRATORY: Denies pneumonia. Denies any troubles with breathing or dyspnea on exertion. CARDIOVASCULAR: has hyperlipidemia. Recent cardiac assessment completed. GASTROINTESTINAL: Has chronic diverticulitis. Reports change in bowel habits. GENITOURINARY: Has increased urinary frequency. MUSCULOSKELETAL: Has back pain, stiffness, joint arthritis. NEUROLOGIC: Denies any numbness or tingling along the distal extremities. No seizure disorders or headaches. PSYCHIATRIC: has depressive disorder. Has generalized anxiety disorder. HEMATOLOGIC: Denies any abnormal bleeding or bruising. PHYSICAL EXAM: VITAL SIGNS: Stable GENERAL: Well-developed pleasant in no acute distress. HEENT: No scleral icterus. Extraocular movements grossly intact. Moist buccal mucosa. He is hard of hearing. NECK: Supple without lymphadenopathy. CHEST: Unlabored respirations. Equal bilateral excursions. CARDIOVASCULAR: Regular rate and rhythm. Distal 2+ pulses. ABDOMEN: Soft, mildly distended. Tender lower abdomen. MUSCULOSKELETAL: No clubbing, cyanosis, or edema. NERUO: Cranial nerves 2-12 grossly intact. PSYCH: Alert and oriented to person place and time. ASSESSMENT: 1. Large bowel obstruction sigmoid colon due to diverticulitis PLAN: 1. Regional block versus epidural for pain management 2. Benefits and risks of surgical robotic sigmoid resection was reviewed in detail. Robotic-assisted approach was also described. 3. Enhanced colon recovery program. 4. DVT prophylaxis. 5. Antibiotic prophylaxis. 6. Inpatient hospitalization greater than 2 nights. 7. CBC and CMP for diverticulitis Past Medical History Past Medical History: Diabetes Mellitus, Thyroid Disorder Additional Past Medical History / Comment(s): diverticulitis, HX OF MIGRAINES, NONE SINCE MENOPAUSE. Vertigo,protein in urine in past History of Any Multi-Drug Resistant Organisms: None Reported Past Surgical History: Adenoidectomy, Cholecystectomy, Tonsillectomy Additional Past Surgical History / Comment(s): Robotic Laparoscopic procedure Jul 2022 aborted due to blockage, COLONOSCOPY, barium enema. Past Anesthesia/Blood Transfusion Reactions: No Reported Reaction, Motion Sickness Additional Past Anesthesia/Blood Transfusion Reaction / Comment(s): Vertigo. Mother hallucinates with anesthesia. No hx blood transfusion Smoking Status: Never smoker - Past Family History Father Family Medical History: Cancer Additional Family Medical History / Comment(s): [place]-rectal cancer. Sister(s) Family Medical History: Cancer Additional Family Medical History / Comment(s): Lung cancer, brain tumor. Medications and Allergies Home Medications Medication Instructions Recorded Confirmed Type Levothyroxine Sodium [Synthroid] 100 mcg PO QAM 07/07/15 11/07/22 History ALPRAZolam [Xanax] 1 mg PO TID PRN 01/31/17 11/07/22 History Allergies Allergy/AdvReac Type Severity Reaction Status Date / Time No Known Allergies Allergy Verified 11/07/22 08:27
[2022-11-08 07:46] LABS: Glucose,Whole Blood 112 mg/dL (70-110)
[2022-11-08] MEDS: LACTATED RINGERS 1,000 ML IV SCH (07:47)
[2022-11-08 07:55] LABS: Basophils # (A) 0.1 k/uL (0-0.2); Basophils % (A) 1 %; Eosinophils # (A) 0.1 k/uL (0-0.7); Eosinophils % (A) 1 %; HCT 40.9 % (34.0-46.0); HGB 14.5 gm/dL (11.4-16.0); Lymphocytes # (A) 2.2 k/uL (1.0-4.8); Lymphocytes % (A) 33 %; MCH 31.2 pg (25.0-35.0); MCHC 35.6 g/dL (31.0-37.0); MCV 87.6 fL (80.0-100.0); Mean Platelet Volume 7.8; Monocytes # (A) 0.5 k/uL (0-1.0); Monocytes % (A) 7 %; Neutrophils # (A) 3.8 k/uL (1.3-7.7); Neutrophils % (A) 55 %; Platelet Count 279 k/uL (150-450); RBC 4.66 m/uL (3.80-5.40); RDW 12.3 % (11.5-15.5); WBC 6.9 k/uL (3.8-10.6)
[2022-11-08] MEDS ORDERED: MIDAZOLAM 2 MG/2 ML VIAL IVP ONE (08:05)
[2022-11-08] MEDS ORDERED: fentaNYL (PF) 50 MCG/1 ML VIAL IVP ONE (08:07)
[2022-11-08 08:16] LABS: ALT 15 U/L (4-34); AST 19 U/L (14-36); African American GFR (CKD) >90 (>60 ml/min/1.73 sqM); Albumin 4.5 g/dL (3.5-5.0); Alkaline Phosphatase 72 U/L (38-126); Anion Gap 6 mmol/L; Blood Urea Nitrogen 9 mg/dL (7-17); Calcium 9.2 mg/dL (8.4-10.2); Carbon Dioxide 25 mmol/L (22-30); Chloride 108 mmol/L (98-107); Glucose 113 mg/dL (74-99); Non-African American GFR(CKD) >90 (>60 ml/min/1.73 sqM); Potassium 3.8 mmol/L (3.5-5.1); Sodium 139 mmol/L (137-145); Total Bilirubin 0.8 mg/dL (0.2-1.3); Total Protein 7.3 g/dL (6.3-8.2)
--- NOTE | 2022-11-08 09:00 | P.ANPRN ---
Procedure Note - Anesthesia - Nerve Block Performed Bilateral Transversus Abdominis Single Time Out Performed: Yes (0805) Date of Procedure: 11/08/22 Location of Patient: PreOp Indication: Acute Post-Operative Pain, Dx/Pain Location (abdominal pain), Requested by Surgeon Specifically requested for management of pain by DrBenton: Pau Thomas Sedation Type: Sedate with meaningful contact maintained Preparation: Sterile Prep Position: Supine Catheter: None Needle Types: Pajunk Needle Gauge: 21 Ultrasound used to visualize needle placement: Yes Ultrasound used to observe medication spread: Yes Injectate: 0.5% Ropivacaine (see comment for volume) (20cc + 10 cc of saline with 4mg of decadron on each side) Blood Aspirated: No Pain Paresthesia on Injection Noted: No Resistance on Injection: Normal Image Stored and Saved: Yes Events: Uneventful and Well Tolerated
[2022-11-08] MEDS ORDERED: ROCURONIUM 10 MG/ML (5 ML VIAL) IV ONE (09:52)
[2022-11-08] MEDS ORDERED: SUCCINYLCHOLINE CHLORIDE 200 MG/10 ML VIAL IV ONE (09:52)
[2022-11-08] MEDS ORDERED: fentaNYL (PF) 50 MCG/ML 2 ML AMP ONE (09:52)
[2022-11-08] MEDS ORDERED: LIDOCAINE 2% INJ 20 MG/ML (2 ML VIAL) ONE (09:52)
[2022-11-08] MEDS ORDERED: PROPOFOL 10 MG/ML 20 ML VIAL IV ONE (09:52)
[2022-11-08] MEDS ORDERED: NEOSTIGMINE 1 MG/ML 10 ML VIAL ONE (09:52)
[2022-11-08] MEDS ORDERED: ROPIVACAINE 5 MG/ML 30 ML VIAL ONE (09:52)
[2022-11-08] MEDS ORDERED: FUROSEMIDE 10 MG/ML 2 ML VIAL ONE (09:52)
[2022-11-08] MEDS ORDERED: SODIUM CHLORIDE 0.9% (PF) 10 ML VIAL ONE (09:52)
[2022-11-08] MEDS ORDERED: GLYCOPYRROLATE 0.2 MG/ML 2 ML VIAL ONE (09:52)
[2022-11-08] MEDS ORDERED: DEXAMETHASONE SOD PHOSPHATE 4 MG/ML 1 ML VIAL ONE (09:52)
[2022-11-08] MEDS ORDERED: MIDAZOLAM 2 MG/2 ML VIAL ONE (09:52)
[2022-11-08] MEDS ORDERED: BUPIVACAIN-EPI 0.25%-1:200,000 30 ML VIAL SQ ONE (10:30)
[2022-11-08] MEDS ORDERED: LACTATED RINGERS 1,000 ML IV ONE ×4 (10:36→18:09)
--- NOTE | 2022-11-08 17:51 | P.OP ---
Date of Procedure: 11/08/22 Description of Procedure: SURGEON: GABI LACEY MD PREOPERATIVE DIAGNOSES: 1. Large bowel obstruction due to diverticulitis 2. Diabetes type 2, non-insulin dependent POSTOPERATIVE DIAGNOSES: 1. Near complete large bowel obstruction from sigmoid diverticulitis 2. Diabetes type 2, [id number] OPERATION: 1. Robotic-assisted daVinci Xi laparoscopic extensive lysis of adhesions over 3 hours for takedown of left pelvic phlegmon 2. Robotic-assisted daVinci Xi laparoscopic with descending colectomy and sigmoid colectomy with low anterior resection using 25 mm EEA powered stapler 3. Robotic-assisted daVinci Xi laparoscopic mobilization of splenic flexure 4. Intraoperative colonoscopy for flexible sigmoidoscopy Anesthesia: GETA, local, block Estimated Blood Loss (ml): 250 Pathology: other (Sigmoid colon) Condition: stable Disposition: floor COMPLICATIONS: None. Operative Findings: 1. Severe pelvic adhesions due to previously contained perforated sigmoid diverticulitis 2. Near complete large bowel obstruction sigmoid colon lumen less than 7 mm 3. Anastomosis performed using Ethicon powered 25 mm ILS stapler 4. Flexible sigmoidoscopy demonstrates no leak 5. Double docking technique performed to address mobilization of splenic flexure 6. Over 7 hrs operative due to complexity of case. INDICATIONS: The patient is a 62-year-old male with history of incomplete colonoscopies due to sigmoid stricture from diverticulitis. Prior colonoscopy was performed with tattoo of the area of concern. Surgical intervention was described. Benefits and risks, including infection, bowel injury, ureteral injury, colostomy creation and possibility for additional surgery was discussed at length. Informed consent was obtained. All questions of the patient and family were answered. DESCRIPTION: Earlier the patient had undergone a bowel prep using the enhanced colon recovery program. The patient was transferred to the operating room onto a split leg table and repositioned to modified lithotomy following intubation. A Mairna catheter was placed. The abdomen was then prepped and draped in standard sterile fashion as Ioban was placed along the abdomen to minimize any contamination of skin floor. After a timeout protocol was performed, attention was then brought to the left upper quadrant whereby a 0 degree 5 mm laparoscopic trocar entry was performed. The abdominal cavity was entered and insufflated to 15 mmHg pressure, which was tolerated well. Diagnostic laparoscopy confirmed severe phlegmon incorporating the left pelvis, lower abdominal wall. Next trocars were placed 20 cm superior from the pelvis. A 12-mm trocar was placed along the right lateral abdominal wall. A 8 mm port was placed along the right upper quadrant. Ports were placed 10 cm apart from each other including 15-20 cm away from the target anatomy of the left pelvis. The 5-mm port was exchanged for an 8 mm robotic port. The stapler 12-mm port was arranged along the left lateral abdominal wall. The patient was then placed in Trendelenburg position, at least 16. The robotic da Rosana XI system was primed. The robot was docked from the right side of the patient. Using atraumatic graspers and vessel sealer, the robotic system was docked and primed as described. Instruments were interchanged by the speech correction assistant including needle straddle bug driver, clip improvement specialist, hook cautery, robotic stapler and vessel sealer. The robot stapler was prepared along the right lateral abdominal wall. Next, attention was brought to identify the sigmoid colon. To address the left pelvic phlegmon, combination of blunt including sharp dissection was performed using a hook cautery and vessel sealer. Extensive and careful dissection was performed without injury to the posterior wall of the bladder. Once the phlegmon was encountered and decompressed with stool identified, at least 2 mL of clear white fluid was identified consistent with previous intrapelvic abscess. Extensive lysis of adhesions occurred well over 3 hours was performed to avoid injury to the ureter, bladder as described. The sigmoid mesentery was mobilized using a vessel sealer. Using multiple fires of the robot stapler 60 mm black and green loads, the descending colon was divided. Mobilization of the colon was performed to the pelvic brim along the sacral promontory. The mesentery of the sigmoid colon was mobilized towards the descending colon using a vessel sealer. Next, the top of the rectum was divided using robotic stapler 60 mm black and green loads. The rest of the sigmoid colon mesentery was mobilized using vessel sealer. The sigmoid colon and mesentery was moderately bulky from recurrent inflammation and infection causing malformation and near complete obstruction of an omega loop. The proximal sigmoid colon was inferior to the top of the rectum and scarred. Additionally, the sigmoid colon was mobilized onto the colon to minimize injury to the ureters. With a significant resection, mobilization of the splenic flexure was proposed. The robot was undocked. The patient was placed in reverse Trendelenburg 16. The robot was docked with attention to the upper abdomen. The descending colon including splenic flexure was mobilized using vessel sealer including blunt dissection. The descending colon was medialized towards the abdomen. The colon was dissected from the retroperitoneum. These maneuvers allowed additional length to create the anastomosis. Once mobilization of splenic flexure was completed. The robot was again undocked. The patient was positioned in steep Trendelenburg position for pelvic surgery. The robot was docked. I went to the foot of the bed for selection of a sizer. A colorectal colon anastomosis with an ILS 25 was selected after using a sizer along the rectum. For the proximal sigmoid colon, a 25-mm anvil was placed after creating a colotomy then closed using a stapler at the distal end. The robot arms were temporarily undocked. A stapler was entered along the rectum and mated to the anvil for 1 minute. The anastomosis was created. The donuts were thick on the rectum side and then on the colon side. I then performed a bedside flexible sigmoidoscopy where no leaks or defects were confirmed as the speech correction assistant placed normal saline along the pelvis. I re-scrubbed into the case. Irrigation fluid was suctioned from the abdomen. The robot was undocked. All needles were removed from the abdominal cavity. A round #19 NOELLE drain was placed into the lateral and right side of the anastomosis in the pelvis and brought out through the right lateral port. Via the stapler site 12-mm left upper quadrant, the resected colon was brought out through the 12 mm trocar of the left upper quadrant after widening the skin incision to 4-cm. The fascial defect was oversewn using 0 Vicryl and a Alan Rose. All incisions were copiously irrigated using dilute normal saline and hydrogen peroxide mixture. Next all pneumoperitoneum was evacuated from the abdominal cavity. The 8-mm trocar sites were reapproximated using 4-0 Monocryl in an interrupted subcuticular fashion. Local anesthetic was infiltrated to all wounds for postop analgesia. All incisions were also cleansed with diluted hydrogen peroxide. An Optifoam surgical dressing was placed over the colon extraction site and NOELLE site. Exofin was applied to the rest of the skin incisions. The patient was extubated successfully. The patient was transferred to the postanesthesia care unit in stable condition. COMPLEXITY STATEMENT: Extensive lysis of adhesions performed over 3+ hrs for large and complicated phlegmon involving the bladder and colon with careful diss ection performed using hook cautery and vessel sealer including blunt dissection. Plan - Discharge Summary Discharge Rx Participant: No New Discharge Prescriptions: No Action Levothyroxine Sodium [Synthroid] 100 mcg PO QAM ALPRAZolam [Xanax] 1 mg PO TID PRN PRN Reason: Anxiety Discharge Medication List Levothyroxine Sodium [Synthroid] 100 mcg PO QAM 07/07/15 [History] ALPRAZolam [Xanax] 1 mg PO TID PRN 01/31/17 [History]
[2022-11-08] MEDS ORDERED: SODIUM CHLORIDE 0.9% 1,000 ML IV ONE ×2 (17:53→18:09)
[2022-11-08] MEDS ORDERED: ALPRAZolam 1 MG TAB PO PRN (17:54)
[2022-11-08] MEDS ORDERED: NALOXONE 0.4 MG/ML 1 ML VIAL IV PRN (17:54)
[2022-11-08] MEDS ORDERED: DEXTROSE 50% SYRINGE 50 ML IVP PRN ×2 (17:56)
[2022-11-08] MEDS ORDERED: ACETAMINOPHEN IV (For NPO) 1,000 MG in EMPTY BAG 1 BAG IVPB ONE (18:00)
[2022-11-08 18:01] LABS: Glucose,Whole Blood 195 mg/dL (70-110)
[2022-11-08] MEDS ORDERED: ARTIFICIAL TEARS OINTMENT 3.5 GM TUBE BOTH EYES PRN (19:56)
[2022-11-08 19:58] LABS: Glucose,Whole Blood 187 mg/dL (70-110)
[2022-11-08] MEDS ORDERED: ARTIFICIAL TEARS-HYPROMELLOSE DROPS 15 ML BTL LEFT EYE PRN (20:18)
[2022-11-08] MEDS: METOCLOPRAMIDE 5 MG/ML 2 ML VIAL IVP SCH (20:19)
[2022-11-08] MEDS: D5-0.45% NACL WITH KCL 20MEQ/L 1,000 ML IV SCH (20:20)
[2022-11-08] MEDS: SIMETHICONE 40 MG/0.6 ML DROPS 2,000 MG/30 ML BOTTLE PO SCH ×2 (20:20→22:14)
[2022-11-08] MEDS: ONDANSETRON 4 MG/2 ML VIAL IVP SCH (20:20)
[2022-11-08] MEDS: INSULIN ASPART (NovoLOG) 100 UNIT/ML VIAL SQ SCH (20:22)
[2022-11-08] MEDS: fentaNYL PCA 500 MCG/50 ML BAG IV SCH (22:13)
--- NOTE | 2022-11-08 23:43 | P.PN ---
Subjective Progress Note Date: 11/08/22 Pain is controlled. Patient is appropriately somnolent. May have clear liquid diet. Objective - Vital Signs Vital signs: Vital Signs Temp 98.0 F 11/08/22 20:00 Pulse 98 11/08/22 21:08 Resp 17 11/08/22 21:08 BP 148/85 11/08/22 21:08 Pulse Ox 97 11/08/22 20:00 FiO2 Intake & Output 11/08/22 11/08/22 11/09/22 06:59 18:59 06:59 Intake Total 4050 Output Total 800 Balance 3250 Weight 70.2 kg Intake: IV 4050 Output: Urine 550 Estimated Blood Loss 250 Other: Voiding Method Indwelling Catheter - Labs CBC & Chem 7: 11/08/22 07:40 11/08/22 07:40 Labs: Abnormal Lab Results - Last 24 Hours (Table) 11/08/22 11/08/22 11/08/22 Range/Units 07:40 07:40 07:44 Chloride 108 H (98-107) mmol/L Glucose 113 H (74-99) mg/dL POC Glucose (mg/dL) 112 H (70-110) mg/dL Hemoglobin A1c 6.3 H (0.0-6.0) % 11/08/22 11/08/22 Range/Units 17:59 19:57 Chloride (98-107) mmol/L Glucose (74-99) mg/dL POC Glucose (mg/dL) 195 H 187 H (70-110) mg/dL Hemoglobin A1c (0.0-6.0) %
[2022-11-09] MEDS: ONDANSETRON 4 MG/2 ML VIAL IVP SCH ×4 (00:19→17:43)
[2022-11-09] MEDS: METOCLOPRAMIDE 5 MG/ML 2 ML VIAL IVP SCH ×4 (00:19→17:43)
[2022-11-09] MEDS: D5-0.45% NACL WITH KCL 20MEQ/L 1,000 ML IV SCH ×4 (02:14→17:43)
[2022-11-09] MEDS: LACTATED RINGERS 1,000 ML IV SCH (02:15)
[2022-11-09 06:18] LABS: Glucose,Whole Blood 152 mg/dL (70-110)
[2022-11-09] MEDS: INSULIN ASPART (NovoLOG) 100 UNIT/ML VIAL SQ SCH ×4 (06:21→20:37)
[2022-11-09] MEDS: LEVOTHYROXINE 100 MCG TAB PO SCH (06:21)
[2022-11-09] MEDS: ALVIMOPAN 12 MG CAPSULE PO SCH ×2 (08:24→20:37)
[2022-11-09] MEDS: SIMETHICONE 40 MG/0.6 ML DROPS 2,000 MG/30 ML BOTTLE PO SCH ×4 (08:24→20:38)
[2022-11-09 08:55] LABS: Basophils # (A) 0.02 X 10*3/uL (0.00-0.10); Basophils % (A) 0.2 %; Eosinophils # (A) 0 X 10*3/uL (0.04-0.35); Eosinophils % (A) 0 %; HCT 32.5 % (37.2-46.3); HGB 11.2 g/dL (12.0-15.0); Immature Grans, Automated 0.3 %; Lymphocytes # (A) 2.04 X 10*3/uL (0.90-5.00); MCH 30.4 pg (27.0-32.0); MCHC 34.5 g/dL (32.0-37.0); MCV 88.3 fL (80.0-97.0); Mean Platelet Volume 9.2 fL (9.5-12.2); Monocytes % (A) 8.8 %; NRBC Per 100 WBC 0 /100 WBCS (0.0-0.0); Neutrophils # (A) 7.22 X 10*3/uL (1.80-7.70); Neutrophils % (A) 70.7 %; Platelet Count 237 X 10*3/uL (140-440); RBC 3.68 X 10*6/uL (4.10-5.20); RDW 12.2 % (11.5-14.5); WBC 10.21 X 10*3/uL (4.50-10.00)
[2022-11-09 10:26] LABS: African American GFR (CKD) 107.6 (60.0-200.0); Anion Gap 4.4 mmol/L (10.00-18.00); Blood Urea Nitrogen 6.3 mg/dL (9.0-27.0); Calcium 8.8 mg/dL (8.7-10.3); Carbon Dioxide 25.6 mmol/L (20.0-27.5); Non-African American GFR(CKD) 92.9 (60.0-200.0); Potassium 3.7 mmol/L (3.5-5.5)
--- NOTE | 2022-11-09 11:03 | P.CONS ---
History of Present Illness - Reason for Consult Consult date: 11/09/22 Requesting physician: Pau Thomas - Chief Complaint abdominal pain - History of Present Illness This patient is a pleasant 62-year-old female who presented on 11/08/2022 for what appears to be an elective hemicolectomy for acute diverticulitis with Dr. Thomas, it appears this lady has had recurrent attacks of diverticulitis and will undergo surgical correction of same Review of Systems Constitutional: Reports as per HPI, Reports malaise, Reports weakness Ears, nose, mouth and throat: Reports as per HPI Cardiovascular: Reports as per HPI Respiratory: Reports as per HPI Gastrointestinal: Reports abdominal pain, Reports change in bowel habits, Reports diarrhea, Reports nausea Genitourinary: Reports as per HPI Menstruation: Reports as per HPI, Reports postmenopausal Musculoskeletal: Reports as per HPI Integumentary: Reports as per HPI Neurological: Reports as per HPI Psychiatric: Reports as per HPI Past Medical History Past Medical History: Diabetes Mellitus, Thyroid Disorder Additional Past Medical History / Comment(s): diverticulitis, HX OF MIGRAINES, NONE SINCE MENOPAUSE. Vertigo,protein in urine in past History of Any Multi-Drug Resistant Organisms: None Reported Past Surgical History: Adenoidectomy, Cholecystectomy, Tonsillectomy Additional Past Surgical History / Comment(s): Robotic Laparoscopic procedure Jul 2022 aborted due to blockage, COLONOSCOPY, barium enema. Past Anesthesia/Blood Transfusion Reactions: No Reported Reaction, Motion Sickness Additional Past Anesthesia/Blood Transfusion Reaction / Comm: Vertigo. Mother hallucinates with anesthesia. No hx blood transfusion Smoking Status: Never smoker - Past Family History Father Family Medical History: Cancer Additional Family Medical History / Comment(s): [place]-rectal cancer. Sister(s) Family Medical History: Cancer Additional Family Medical History / Comment(s): Lung cancer, brain tumor. Medications and Allergies Home Medications Medication Instructions Recorded Confirmed Type Levothyroxine Sodium [Synthroid] 100 mcg PO QAM 07/07/15 11/08/22 History ALPRAZolam [Xanax] 1 mg PO TID PRN 01/31/17 11/08/22 History Allergies Allergy/AdvReac Type Severity Reaction Status Date / Time No Known Allergies Allergy Verified 11/08/22 07:31 Physical Exam Osteopathic Statement: *. No significant issues noted on an osteopathic structural exam other than those noted in the History and Physical/Consult. Vitals: Vital Signs Temp Pulse Pulse Resp BP Pulse Ox 11/09/22 08:00 98.1 F 91 18 109/71 94 L 11/09/22 02:00 97.2 F L 93 17 99/53 97 11/08/22 21:08 98 17 148/85 11/08/22 21:05 97 17 133/82 11/08/22 20:00 98.0 F 87 17 155/76 97 11/08/22 18:30 81 16 142/75 97 11/08/22 18:18 86 16 143/78 98 11/08/22 18:03 83 16 156/78 100 11/08/22 17:48 84 16 149/88 100 11/08/22 17:33 97.6 F 96 18 145/89 95 Intake and Output 11/08/22 11/09/22 11/09/22 22:59 06:59 14:59 Intake Total 1200 Output Total 50 800 250 Balance 1150 -800 -250 Intake: IV 1200 Output: Urine 50 800 250 Other: Voiding Method Indwelling Catheter General: [Patient awake, alert and oriented times 3. Patient in no acute distress.] HEENT: [PERRL. EOMI. No pharyngeal erythema or exudate.] Neck: [No adenopathy.] Cardiac: [Heart regular in rate and rhythm. No S3. No S4. No clicks, rubs. No murmur.] Lungs: [Clear to auscultation bilaterally.] Abdomen: [No mass. No organomegaly. Bowel sounds presnt and normoactive in all 4 quadrants. Surgical wounds consistent with robotic resection Extremes: [No edema no cyanosis no claudication normal pulses] : Normal female genitalia Musculoskeletal: [No joint erythema, edema or tenderness.] Skin: [No rash.] Neurologic: [No lateralizing deficits. CN II - XII grossly intact.] Lymphatic: [No adenopathy.] Results CBC & Chem 7: 11/09/22 05:59 11/09/22 05:59 Labs: Abnormal Lab Results - Last 24 Hours (Table) 11/08/22 11/08/22 11/08/22 Range/Units 07:40 17:59 19:57 WBC (4.50-10.00) X 10*3/uL RBC (4.10-5.20) X 10*6/uL Hgb (12.0-15.0) g/dL Hct (37.2-46.3) % MPV (9.5-12.2) fL Eosinophils # (0.04-0.35) X 10*3/uL Anion Gap (10.00-18.00) mmol/L BUN (9.0-27.0) mg/dL BUN/Creatinine Ratio (12.00-20.00) Ratio Glucose (70-110) mg/dL POC Glucose (mg/dL) 195 H 187 H (70-110) mg/dL Hemoglobin A1c 6.3 H (0.0-6.0) % 11/09/22 11/09/22 11/09/22 Range/Units 05:59 05:59 06:15 WBC 10.21 H (4.50-10.00) X 10*3/uL RBC 3.68 L (4.10-5.20) X 10*6/uL Hgb 11.2 L (12.0-15.0) g/dL Hct 32.5 L (37.2-46.3) % MPV 9.2 L (9.5-12.2) fL Eosinophils # 0 L (0.04-0.35) X 10*3/uL Anion Gap 4.40 L (10.00-18.00) mmol/L BUN 6.3 L (9.0-27.0) mg/dL BUN/Creatinine Ratio 9.00 L (12.00-20.00) Ratio Glucose 152 H (70-110) mg/dL POC Glucose (mg/dL) 152 H (70-110) mg/dL Hemoglobin A1c (0.0-6.0) % Assessment and Plan (1) Large bowel obstruction Current Visit: Yes Status: Acute Code(s): K56.609 - UNSP INTESTNL OBST, UNSP TO PARTIAL VERSUS COMPLETE OBST SNOMED Code(s): 252548480 (2) Acute diverticulitis Current Visit: No Status: Acute Code(s): K57.92 - DVTRCLI OF INTEST, PART UNSP, W/O PERF OR ABSCESS W/O BLEED SNOMED Code(s): 974323460 (3) Chest pain Current Visit: No Status: Acute Code(s): R07.9 - CHEST PAIN, UNSPECIFIED SNOMED Code(s): 49316802 (4) Peritoneal adhesions (postoperative) (postinfection) Current Visit: No Status: Acute Code(s): K66.0 - PERITONEAL ADHESIONS (POSTPROCEDURAL) (POSTINFECTION) SNOMED Code(s): 40578648 Plan: Status post resection for acute diverticulitis Type 2 diabetes Hypothyroidism Review labs, TSH and glucose Normal make recommendations accordingly Thank you Dr. Roland for this most interesting consultation Time with Patient: Greater than 30
[2022-11-09] MEDS ORDERED: PROPARACAINE 0.5% OPHTH DROPS 15 ML BTL BOTH EYES STA (11:05)
[2022-11-09 11:18] LABS: Glucose,Whole Blood 151 mg/dL (70-110)
[2022-11-09] MEDS: PIPERACILLIN-TAZOBACTAM 3.375 GM in SODIUM CHLORIDE 0.9% 100 ML IVPB SCH ×2 (11:29→20:37)
[2022-11-09] MEDS: ERYTHROMYCIN 5 MG/GM OPHTH OINT 3.5 GM TUBE LEFT EYE SCH ×2 (11:30→17:44)
[2022-11-09] MEDS: fentaNYL PCA 500 MCG/50 ML BAG IV SCH (16:06)
[2022-11-09 17:01] LABS: Glucose,Whole Blood 125 mg/dL (70-110)
[2022-11-09] MEDS: ACETAMINOPHEN IV (For NPO) 1,000 MG in EMPTY BAG 1 BAG IVPB SCH (17:44)
--- NOTE | 2022-11-09 18:20 | P.CON ---
Consult Note - . Consult date: 11/09/22 Assessment/Plan:: This is a 62 y/o female who underwent a partial colon resection. Upon awakening she found that her left eye was uncomfortable and presumed scratched. She has no significant eye history, does wear glasses, and has had no previous surgery or ongoing medical treatments to the eye. Va: 20/25+2 OD, 20/25 OS IOP: Tonopen @1710 13 mm Hg OD, 15 mm Hg OS EOM: full D&V Pupils: - APD Ext: unremarkable Conj: white and quiet Cornea: no obvious staining, of either eye AC: D&Q Iris: unremarkable A: corneal abrasion left eye P: recommend topical antibiotic ointment 4 times daily for 72, left eye and tears for both eyes 4 times daily and as needed. Will be happy to follow as needed. Thank you for the consultation.
--- NOTE | 2022-11-09 19:16 | P.PN ---
Subjective Progress Note Date: 11/09/22 CHIEF COMPLAINT: Diverticulitis HISTORY OF PRESENT ILLNESS: The patient is a 62-year-old female status post robotic left colectomy including sigmoid colectomy and low anterior resection for extensive colonic diverticulitis. She is tolerating liquid diet. She reports appropriate incisional pain. No flatus. She is ambulating. Intra-operative findings of extensive diverticulitis involving sigmoid colon including left colon reviewed requiring extensive colon resection. She is still pending improvement of her pain. Patient is being seen by ophthamology for eye pain following surgery. ROS: No reports of nausea and vomiting. No bowel movements. No fevers or chills. No new chest pain. No productive sputum. PHYSICAL EXAM: VITAL SIGNS: Reviewed CONSTITUTIONAL: Well developed and in no acute distress. EYES: Conjuctivae without sclera icterus. Extraocular movements grossly intact. HEAD, EARS, NOSE, THROAT: Moist buccal mucosa. Head is atraumatic, normocephalic. Hears conversational speech. No nasal drainage. RESPIRATORY: Non-labored respirations and equal bilateral excursions. CARDIOVASCULAR: Palpable 2+ radial pulses. ABDOMEN: Dressing intact. No peritonitis. MUSCULOSKELETAL: No gross deformity of the lower extremities noted. No clubbing. No cyanosis. SKIN: Good skin turgor. Well perfused. NEUROLOGIC: Cranial nerves II through XII grossly intact. No focal or lateralizing signs. PSYCH: Appropriate affect. Alert and oriented to person, place and time. CLINICAL LABS: Reviewed. WBC elevated 6.9 to 10.2 expected post surgical response. ASSESSMENT: 1. Severe colonic diverticulitis 2. Eye pain 3. Status post colectomy PLAN: 1. Continue Fentanyl LEAD MILITARY ANALYST for improvement of pain management. 2. Appreciate ophthamology for eye pain following surgery. 3. Continue hospitalization for complicated diverticulitis. 4. Continue antibiotics for diverticulitis. Objective - Vital Signs Vital signs: Vital Signs Temp 98.3 F 11/09/22 14:00 Pulse 81 11/09/22 14:00 Resp 18 11/09/22 14:00 BP 123/66 11/09/22 14:00 Pulse Ox 92 L 11/09/22 14:00 FiO2 Intake & Output 11/09/22 11/09/22 11/10/22 06:59 18:59 06:59 Output Total 800 950 Balance -800 -950 Output: Urine 800 950 Other: Voiding Method Indwelling Catheter # Voids 1 - Labs CBC & Chem 7: 11/10/22 11:35 11/10/22 11:34 Labs: Abnormal Lab Results - Last 24 Hours (Table) 11/08/22 11/08/22 11/09/22 Range/Units 07:40 19:57 05:59 WBC 10.21 H (4.50-10.00) X 10*3/uL RBC 3.68 L (4.10-5.20) X 10*6/uL Hgb 11.2 L (12.0-15.0) g/dL Hct 32.5 L (37.2-46.3) % MPV 9.2 L (9.5-12.2) fL Eosinophils # 0 L (0.04-0.35) X 10*3/uL Anion Gap (10.00-18.00) mmol/L BUN (9.0-27.0) mg/dL BUN/Creatinine Ratio (12.00-20.00) Ratio Glucose (70-110) mg/dL POC Glucose (mg/dL) 187 H (70-110) mg/dL Hemoglobin A1c 6.3 H (0.0-6.0) % 11/09/22 11/09/22 11/09/22 Range/Units 05:59 06:15 11:16 WBC (4.50-10.00) X 10*3/uL RBC (4.10-5.20) X 10*6/uL Hgb (12.0-15.0) g/dL Hct (37.2-46.3) % MPV (9.5-12.2) fL Eosinophils # (0.04-0.35) X 10*3/uL Anion Gap 4.40 L (10.00-18.00) mmol/L BUN 6.3 L (9.0-27.0) mg/dL BUN/Creatinine Ratio 9.00 L (12.00-20.00) Ratio Glucose 152 H (70-110) mg/dL POC Glucose (mg/dL) 152 H 151 H (70-110) mg/dL Hemoglobin A1c (0.0-6.0) % 11/09/22 Range/Units 17:00 WBC (4.50-10.00) X 10*3/uL RBC (4.10-5.20) X 10*6/uL Hgb (12.0-15.0) g/dL Hct (37.2-46.3) % MPV (9.5-12.2) fL Eosinophils # (0.04-0.35) X 10*3/uL Anion Gap (10.00-18.00) mmol/L BUN (9.0-27.0) mg/dL BUN/Creatinine Ratio (12.00-20.00) Ratio Glucose (70-110) mg/dL POC Glucose (mg/dL) 125 H (70-110) mg/dL Hemoglobin A1c (0.0-6.0) %
[2022-11-09 20:15] LABS: Glucose,Whole Blood 131 mg/dL (70-110)
[2022-11-09] MEDS: GABAPENTIN 300 MG CAP PO SCH (20:37)
[2022-11-10] MEDS: ERYTHROMYCIN 5 MG/GM OPHTH OINT 3.5 GM TUBE LEFT EYE SCH ×4 (00:43→17:00)
[2022-11-10] MEDS: ACETAMINOPHEN IV (For NPO) 1,000 MG in EMPTY BAG 1 BAG IVPB SCH ×3 (00:43→11:04)
[2022-11-10] MEDS: ONDANSETRON 4 MG/2 ML VIAL IVP SCH ×4 (00:44→17:01)
[2022-11-10] MEDS: METOCLOPRAMIDE 5 MG/ML 2 ML VIAL IVP SCH ×4 (00:44→17:01)
[2022-11-10] MEDS: LEVOTHYROXINE 100 MCG TAB PO SCH (05:27)
[2022-11-10] MEDS: PIPERACILLIN-TAZOBACTAM 3.375 GM in SODIUM CHLORIDE 0.9% 100 ML IVPB SCH ×3 (05:27→20:41)
[2022-11-10] MEDS: LACTATED RINGERS 1,000 ML IV SCH (05:28)
[2022-11-10 06:42] LABS: Glucose,Whole Blood 132 mg/dL (70-110)
[2022-11-10] MEDS: INSULIN ASPART (NovoLOG) 100 UNIT/ML VIAL SQ SCH ×4 (06:47→20:43)
[2022-11-10] MEDS: GABAPENTIN 300 MG CAP PO SCH ×3 (08:09→21:41)
[2022-11-10] MEDS: SIMETHICONE 40 MG/0.6 ML DROPS 2,000 MG/30 ML BOTTLE PO SCH ×4 (08:09→21:41)
[2022-11-10] MEDS: ALVIMOPAN 12 MG CAPSULE PO SCH ×2 (08:09→20:42)
[2022-11-10] MEDS: D5-0.45% NACL WITH KCL 20MEQ/L 1,000 ML IV SCH ×3 (08:10→15:18)
--- NOTE | 2022-11-10 11:03 | XR ---
EXAMINATION TYPE: XR chest 2V DATE OF EXAM: 11/10/2022 10:43 AM COMPARISON: Chest radiographs from 06/29/2015. TECHNIQUE: XR chest 2V Frontal and lateral views of the chest. CLINICAL INDICATION:Female, 62 years old with history of Oxygen desaturation; FINDINGS: Lungs/Pleura: There is no evidence of pleural effusion, focal consolidation, or pneumothorax. Pulmonary vascularity: Unremarkable. Heart/mediastinum: Cardiomediastinal silhouette is unremarkable. Musculoskeletal: No acute osseous pathology. IMPRESSION: No acute cardiopulmonary disease/process.
[2022-11-10] MEDS: ENOXAPARIN 30 MG/0.3 ML SYRINGE SQ SCH (11:05)
[2022-11-10 11:30] LABS: Glucose,Whole Blood 157 mg/dL (70-110)
[2022-11-10 12:14] LABS: Basophils % (A) 1 %; Eosinophils # (A) 0.1 k/uL (0-0.7); Eosinophils % (A) 1 %; HCT 36.7 % (34.0-46.0); HGB 12.5 gm/dL (11.4-16.0); Lymphocytes # (A) 1.4 k/uL (1.0-4.8); Lymphocytes % (A) 18 %; MCH 30.4 pg (25.0-35.0); MCV 89.6 fL (80.0-100.0); Mean Platelet Volume 7.7; Monocytes # (A) 0.4 k/uL (0-1.0); Monocytes % (A) 5 %; Neutrophils # (A) 5.7 k/uL (1.3-7.7); Neutrophils % (A) 74 %; Platelet Count 226 k/uL (150-450); RBC 4.09 m/uL (3.80-5.40); RDW 12.2 % (11.5-15.5); WBC 7.7 k/uL (3.8-10.6)
[2022-11-10 12:23] LABS: ALT 27 U/L (4-34); AST 52 U/L (14-36); African American GFR (CKD) >90 (>60 ml/min/1.73 sqM); Albumin 3.4 g/dL (3.5-5.0); Albumin/Globulin Ratio 1.5; Alkaline Phosphatase 57 U/L (38-126); Anion Gap 3 mmol/L; Blood Urea Nitrogen 3 mg/dL (7-17); Calcium 8.4 mg/dL (8.4-10.2); Carbon Dioxide 26 mmol/L (22-30); Chloride 105 mmol/L (98-107); Globulin 2.3 g/dL; Glucose 146 mg/dL (74-99); Non-African American GFR(CKD) >90 (>60 ml/min/1.73 sqM); Potassium 3.7 mmol/L (3.5-5.1); Sodium 134 mmol/L (137-145); Total Bilirubin 0.5 mg/dL (0.2-1.3); Total Protein 5.7 g/dL (6.3-8.2)
--- NOTE | 2022-11-10 13:21 | P.CNPUL ---
History of Present Illness Consult date: 11/10/22 Requesting physician: Pau Thomas Reason for consult: cough, other Chief complaint: Mucus stuck in throat. History of present illness: Pulmonary consult dated 11/10/2022. This is a 62-year-old female with no known pulmonary disease, who is postoperative day #2, status post robotically assisted sigmoid colectomy, low anterior resection, mobilization of splenic flexure, intraoperative colonoscopy, and lysis of adhesions. We were consulted for possible COPD. The patient does not have COPD. She did smoke when she was a teenager for a year or 2. She denies any symptoms or suggestions of COPD such as cough, wheezing, or phlegm production. Since she had her surgery, she's been complaining of some mucus being stuck in her throat. Other than that, she has no complaints. She has not been using her incentive spirometer as frequently as she should. Her only medical history includes hypothyroidism. The patient does have a history of abdominal pain from diverticulitis, and a history of sigmoid stricture. This is why she had the surgery. CBC is completely normal. Sodium 134, potassium 3.7, chlorides 105, CO2 26, BUN 3, and creatinine 0.67. The chest x-ray from today is normal. Review of Systems REVIEW OF SYSTEMS: CONSTITUTIONAL: [Negative.] NEUROLOGIC: [ Negative.] HEENT: [ Negative.] CARDIAC: [Negative.] PULMONARY: Mucus stuck in the back of her throat. GI: Abdominal pain from surgery. : [Negative.] RHEUMATOLOGIC: [ Negative.] IMMUNOLOGIC: [ Negative.] ENDOCRINE: [Negative. ] DERMATOLOGIC: [Negative.] Past Medical History Past Medical History: Diabetes Mellitus, Thyroid Disorder Additional Past Medical History / Comment(s): diverticulitis, HX OF MIGRAINES, NONE SINCE MENOPAUSE. Vertigo,protein in urine in past History of Any Multi-Drug Resistant Organisms: None Reported Past Surgical History: Adenoidectomy, Cholecystectomy, Tonsillectomy Additional Past Surgical History / Comment(s): Robotic Laparoscopic procedure Jul 2022 aborted due to blockage, COLONOSCOPY, barium enema. Past Anesthesia/Blood Transfusion Reactions: No Reported Reaction, Motion Sickness Additional Past Anesthesia/Blood Transfusion Reaction / Comment(s): Vertigo. Mother hallucinates with anesthesia. No hx blood transfusion Smoking Status: Never smoker - Past Family History Father Family Medical History: Cancer Additional Family Medical History / Comment(s): [place]-rectal cancer. Sister(s) Family Medical History: Cancer Additional Family Medical History / Comment(s): Lung cancer, brain tumor. Medications and Allergies Home Medications Medication Instructions Recorded Confirmed Type Levothyroxine Sodium [Synthroid] 100 mcg PO QAM 07/07/15 11/08/22 History ALPRAZolam [Xanax] 1 mg PO TID PRN 01/31/17 11/08/22 History Allergies Allergy/AdvReac Type Severity Reaction Status Date / Time No Known Allergies Allergy Verified 11/08/22 07:31 Physical Exam Osteopathic Statement: *. No significant issues noted on an osteopathic structural exam other than those noted in the History and Physical/Consult. Vitals: Vital Signs Temp Pulse Pulse Resp BP Pulse Ox 11/10/22 08:00 98.4 F 91 18 144/80 90 L 11/10/22 02:00 98.2 F 108 H 16 146/78 92 L 11/09/22 20:00 97.7 F 87 17 119/73 93 L 11/09/22 14:00 98.3 F 81 18 123/66 92 L Intake and Output 11/09/22 11/10/22 11/10/22 22:59 06:59 14:59 Output Total 700 Balance -700 Output: Urine 700 Other: Voiding Method Toilet Toilet # Voids 1 4 No acute distress, oriented 3. No respiratory distress, conversational dyspnea, or use of accessory muscles. Currently on room air. HEENT examination is grossly unremarkable. Neck supple. Full range of motion. No adenopathy thyromegaly or neck vein distention. Cardiovascular examination reveals regular rhythm rate. S1-S2 normal. No S3 or S4. No discernible murmur noted. Heart rate 87 bpm. Lungs reveal clear breath sounds. Breath sounds are equal bilaterally. No adventitious lung sounds including wheezes rhonchi or crackles. Abdomen soft, with bowel sounds. Tenderness on palpation. Extremities are intact. No cyanosis clubbing or edema. Skin is without rash or lesion. Neurologic examination is brief but nonfocal. Results - Laboratory Findings CBC and BMP: 11/10/22 11:35 11/10/22 11:34 Abnormal lab findings: Abnormal Labs 11/08/22 11/08/22 11/08/22 07:40 07:40 07:44 WBC RBC Hgb Hct MPV Eosinophils # Sodium Chloride 108 H Anion Gap BUN BUN/Creatinine Ratio Glucose 113 H POC Glucose (mg/dL) 112 H Hemoglobin A1c 6.3 H AST Total Protein Albumin 11/08/22 11/08/22 11/09/22 17:59 19:57 05:59 WBC 10.21 H RBC 3.68 L Hgb 11.2 L Hct 32.5 L MPV 9.2 L Eosinophils # 0 L Sodium Chloride Anion Gap BUN BUN/Creatinine Ratio Glucose POC Glucose (mg/dL) 195 H 187 H Hemoglobin A1c AST Total Protein Albumin 11/09/22 11/09/22 11/09/22 05:59 06:15 11:16 WBC RBC Hgb Hct MPV Eosinophils # Sodium Chloride Anion Gap 4.40 L BUN 6.3 L BUN/Creatinine Ratio 9.00 L Glucose 152 H POC Glucose (mg/dL) 152 H 151 H Hemoglobin A1c AST Total Protein Albumin 11/09/22 11/09/22 11/10/22 17:00 20:13 06:41 WBC RBC Hgb Hct MPV Eosinophils # Sodium Chloride Anion Gap BUN BUN/Creatinine Ratio Glucose POC Glucose (mg/dL) 125 H 131 H 132 H Hemoglobin A1c AST Total Protein Albumin 11/10/22 11/10/22 11:29 11:34 WBC RBC Hgb Hct MPV Eosinophils # Sodium 134 L Chloride Anion Gap BUN 3 L BUN/Creatinine Ratio Glucose 146 H POC Glucose (mg/dL) 157 H Hemoglobin A1c AST 52 H Total Protein 5.7 L Albumin 3.4 L - Diagnostic Findings Chest x-ray: image reviewed Assessment and Plan Assessment: Postop day #2, status post robotically assisted sigmoid colectomy, low anterior resection, lysis of adhesions, mobilization of splenic flexure, and intraoperative colonoscopy. History of diverticulitis, with sigmoid stricture. No history to suggest COPD or any lung disease for that matter. History of hypothyroidism. Plan: Plan dated 11/10/2022. We told the patient that was very normal after a prolonged surgery with general anesthesia, to have retained pulmonary secretions. The patient has not been using her incentive spirometer as she should be. We recommend that she use it hourly while awake. In addition, we recommend deep breathing, coughing, and clearing of secretions. He did by the addition of Mucinex. If she's not improved, a flutter valve may help as well. No additional recommendations are made. The patient does not appear to have any substantial chronic lung disease. Time with Patient: Greater than 30
--- NOTE | 2022-11-10 15:17 | P.PN ---
Subjective Progress Note Date: 11/10/22 This is a pleasant 62-year-old patient of our nurse practitioner, Aracelis, this patient underwent a bowel resection for recurrent diverticulitis and Daniela Truxion on November 08. She is currently on clear liquids. She complains of some coughing and mucus production with cough. Denies any chest pains pressures or [place] breath. Abdominal pain is controlled. She denies passing flatus, but is belching. .Glucose appears, well-controlled. Vital signs are stable, labs are essentially normal Objective - Vital Signs Vital signs: Vital Signs Temp 98.0 F 11/10/22 14:00 Pulse 63 11/10/22 14:00 Resp 17 11/10/22 14:00 BP 135/84 11/10/22 14:00 Pulse Ox 95 11/10/22 14:00 FiO2 Intake & Output 11/09/22 11/10/22 11/10/22 18:59 06:59 18:59 Output Total 950 Balance -950 Output: Urine 950 Other: Voiding Method Toilet Toilet # Voids 1 4 - Exam Neck: The neck is supple, there is no thyromegaly, lymphadenopathy, tenderness or JVD. Cardiovascular: S1S2 is normal, There is a regular rate and rhythm. No murmur, rub or gallop is appreciated. Respiratory: Lungs are clear to auscultationb bilaterally, respirations are non- labored, breath sounds are equal. Gastrointestinal: Soft, non-distended, without masses or organomegaly noted. There is no rebound or guarding present. Bowel sounds are unremarkable. palpated very getnly There is no pedal edema. There is no calf tenderness or swelling. No cords were appreciated. Neurological: CN II-XII intact, there are no obvious motor or sensory deficits. Coordination appears grossly intact. Speech is normal.he is awake alert and oriented 3 today. Skin: Skin is warm and dry and no rashes or lesions are noted. - Labs CBC & Chem 7: 11/10/22 11:35 11/10/22 11:34 Labs: Abnormal Lab Results - Last 24 Hours (Table) 11/09/22 11/09/22 11/10/22 Range/Units 17:00 20:13 06:41 Sodium (137-145) mmol/L BUN (7-17) mg/dL Glucose (74-99) mg/dL POC Glucose (mg/dL) 125 H 131 H 132 H (70-110) mg/dL AST (14-36) U/L Total Protein (6.3-8.2) g/dL Albumin (3.5-5.0) g/dL 11/10/22 11/10/22 Range/Units 11:29 11:34 Sodium 134 L (137-145) mmol/L BUN 3 L (7-17) mg/dL Glucose 146 H (74-99) mg/dL POC Glucose (mg/dL) 157 H (70-110) mg/dL AST 52 H (14-36) U/L Total Protein 5.7 L (6.3-8.2) g/dL Albumin 3.4 L (3.5-5.0) g/dL Assessment and Plan (1) S/P partial colectomy Current Visit: Yes Status: Acute Code(s): Z90.49 - ACQUIRED ABSENCE OF OTHER SPECIFIED PARTS OF DIGESTIVE TRACT SNOMED Code(s): 789341116 (2) Acquired hypothyroidism Current Visit: Yes Status: Acute Code(s): E03.9 - HYPOTHYROIDISM, UNSPECIFIED SNOMED Code(s): 063900525 (3) Large bowel obstruction Current Visit: Yes Status: Acute Code(s): K56.609 - UNSP INTESTNL OBST, UNSP TO PARTIAL VERSUS COMPLETE OBST SNOMED Code(s): 876503373 (4) Acute diverticulitis Current Visit: No Status: Acute Code(s): K57.92 - DVTRCLI OF INTEST, PART UNSP, W/O PERF OR ABSCESS W/O BLEED SNOMED Code(s): 047932674 (5) Cough Current Visit: Yes Status: Acute Code(s): R05.9 - COUGH, UNSPECIFIED SNOMED Code(s): 00984443 Plan: She will continue our current course and treatments. Pulmonology Dory regarding the cough and feels it's probably from mucus secretions due to her extended surgical time. She appears medically stable this time. Will reevaluate her In the next 24 hours or as needed
[2022-11-10 16:52] LABS: Glucose,Whole Blood 151 mg/dL (70-110)
[2022-11-10] MEDS: fentaNYL PCA 500 MCG/50 ML BAG IV SCH (17:00)
[2022-11-10 19:34] LABS: Glucose,Whole Blood 164 mg/dL (70-110)
--- NOTE | 2022-11-10 20:26 | P.PN ---
Subjective Progress Note Date: 11/10/22 CHIEF COMPLAINT: Diverticulitis HISTORY OF PRESENT ILLNESS: The patient is a 62-year-old female status post robotic left colectomy including sigmoid colectomy and low anterior resection for extensive colonic diverticulitis. She removed her scopolamine patch and had nausea. She is ambulating. Her pain is controlled. She reports decreased use of her VOICE WRITING REPORTER. She reports decreased eye pain. No flatus or bowel movement expected. She has improved eye pain. ROS: No reports of nausea and vomiting. No bowel movements. No fevers or chills. No new chest pain. No productive sputum. PHYSICAL EXAM: VITAL SIGNS: Reviewed CONSTITUTIONAL: Well developed and in no acute distress. EYES: Conjuctivae without sclera icterus. Extraocular movements grossly intact. HEAD, EARS, NOSE, THROAT: Moist buccal mucosa. Head is atraumatic, normocephalic. Hears conversational speech. No nasal drainage. RESPIRATORY: Non-labored respirations and equal bilateral excursions. Oxygen saturation less than 92%. CARDIOVASCULAR: Palpable 2+ radial pulses. ABDOMEN: Dressing intact. No peritonitis. MUSCULOSKELETAL: No gross deformity of the lower extremities noted. No clubbing. No cyanosis. SKIN: Good skin turgor. Well perfused. NEUROLOGIC: Cranial nerves II through XII grossly intact. No focal or lateralizing signs. PSYCH: Appropriate affect. Alert and oriented to person, place and time. CLINICAL LABS: Reviewed. WBC normalized. Hgb stable. STUDIES: Chest xray reviewed without free air or pneumonia. This is my independent interpretation. ASSESSMENT: 1. Severe colonic diverticulitis 2. Eye pain 3. Status post colectomy 4. Oxygen desaturation. 5. Nausea PLAN: 1. Chest xray was obtained without free air. Pulmonary consultation obtained for persistent oxygen desaturation despite incentive spirometry 2. Continue antibiotics for diverticulitis 3. Re-order scopolamine patch for nausea. 4. Disposition pending bowel function, improved respiratory status and nausea. 5. Continue hospitalization. Objective - Vital Signs Vital signs: Vital Signs Temp 98.0 F 11/10/22 14:00 Pulse 63 11/10/22 14:00 Resp 17 11/10/22 14:00 BP 135/84 11/10/22 14:00 Pulse Ox 95 11/10/22 17:00 FiO2 Intake & Output 11/10/22 11/10/22 11/11/22 06:59 18:59 06:59 Other: Voiding Method Toilet Toilet # Voids 4 4 - Labs CBC & Chem 7: 11/10/22 11:35 11/10/22 11:34 Labs: Abnormal Lab Results - Last 24 Hours (Table) 11/10/22 11/10/22 11/10/22 Range/Units 06:41 11:29 11:34 Sodium 134 L (137-145) mmol/L BUN 3 L (7-17) mg/dL Glucose 146 H (74-99) mg/dL POC Glucose (mg/dL) 132 H 157 H (70-110) mg/dL AST 52 H (14-36) U/L Total Protein 5.7 L (6.3-8.2) g/dL Albumin 3.4 L (3.5-5.0) g/dL 11/10/22 11/10/22 Range/Units 16:51 19:32 Sodium (137-145) mmol/L BUN (7-17) mg/dL Glucose (74-99) mg/dL POC Glucose (mg/dL) 151 H 164 H (70-110) mg/dL AST (14-36) U/L Total Protein (6.3-8.2) g/dL Albumin (3.5-5.0) g/dL
[2022-11-10] MEDS ORDERED: SODIUM CHLORIDE 0.9% 1,000 ML IV SCH (20:30)
[2022-11-10] MEDS ORDERED: SCOPOLAMINE 1 MG/72 HR PATCH TRANSDERM SCH (20:45)
[2022-11-11] MEDS: ERYTHROMYCIN 5 MG/GM OPHTH OINT 3.5 GM TUBE LEFT EYE SCH ×4 (01:00→17:25)
[2022-11-11] MEDS: ACETAMINOPHEN IV (For NPO) 1,000 MG in EMPTY BAG 1 BAG IVPB SCH ×4 (01:00→17:25)
[2022-11-11] MEDS: ONDANSETRON 4 MG/2 ML VIAL IVP SCH ×4 (01:01→17:24)
[2022-11-11] MEDS: METOCLOPRAMIDE 5 MG/ML 2 ML VIAL IVP SCH ×4 (01:01→17:24)
[2022-11-11] MEDS: PIPERACILLIN-TAZOBACTAM 3.375 GM in SODIUM CHLORIDE 0.9% 100 ML IVPB SCH ×3 (03:50→22:18)
[2022-11-11] MEDS: INSULIN ASPART (NovoLOG) 100 UNIT/ML VIAL SQ SCH ×4 (06:51→21:08)
[2022-11-11] MEDS: LEVOTHYROXINE 100 MCG TAB PO SCH (06:51)
[2022-11-11] MEDS: ENOXAPARIN 30 MG/0.3 ML SYRINGE SQ SCH (08:01)
[2022-11-11] MEDS: GABAPENTIN 300 MG CAP PO SCH ×3 (08:01→21:09)
[2022-11-11] MEDS: SIMETHICONE 40 MG/0.6 ML DROPS 2,000 MG/30 ML BOTTLE PO SCH ×4 (09:00→21:22)
[2022-11-11 11:02] LABS: Glucose,Whole Blood 97 mg/dL (70-110)
--- NOTE | 2022-11-11 13:05 | P.PN ---
Subjective Progress Note Date: 11/11/22 Principal diagnosis: Diverticulitis. Colon resection Objective - Vital Signs Vital signs: Vital Signs Temp 97.5 F L 11/11/22 08:00 Pulse 68 11/11/22 08:00 Resp 15 11/11/22 08:00 BP 121/74 11/11/22 08:00 Pulse Ox 97 11/11/22 08:00 FiO2 Intake & Output 11/10/22 11/11/22 11/11/22 18:59 06:59 18:59 Output Total 2 Balance -2 Output: Stool 2 Other: Voiding Method Toilet Toilet # Voids 4 4 - Exam General: [Patient awake, alert and oriented times 3. Patient in no acute distress.] HEENT: [PERRL. EOMI. No pharyngeal erythema or exudate.] Neck: [No adenopathy.] Cardiac: [Heart regular in rate and rhythm. No S3. No S4. No clicks, rubs. No murmur.] Lungs: [Clear to auscultation bilaterally.] Abdomen: [No mass. No organomegaly. Bowel sounds presnt and normoactive in all 4 quadrants. Surgical incisions consistent with robotic bowel resection for diverticulitis Extremes: [No edema no cyanosis no claudication normal pulses] : Normal female genitalia Musculoskeletal: [No joint erythema, edema or tenderness.] Skin: [No rash.] Neurologic: [No lateralizing deficits. CN II - XII grossly intact.] Lymphatic: [No adenopathy.] - Labs CBC & Chem 7: 11/10/22 11:35 11/10/22 11:34 Labs: Abnormal Lab Results - Last 24 Hours (Table) 11/10/22 11/10/22 Range/Units 16:51 19:32 POC Glucose (mg/dL) 151 H 164 H (70-110) mg/dL Assessment and Plan (1) Large bowel obstruction Current Visit: Yes Status: Acute Code(s): K56.609 - UNSP INTESTNL OBST, UNSP TO PARTIAL VERSUS COMPLETE OBST SNOMED Code(s): 861166633 (2) Acute diverticulitis Current Visit: No Status: Acute Code(s): K57.92 - DVTRCLI OF INTEST, PART UNSP, W/O PERF OR ABSCESS W/O BLEED SNOMED Code(s): 108360832 (3) Chest pain Current Visit: No Status: Acute Code(s): R07.9 - CHEST PAIN, UNSPECIFIED SNOMED Code(s): 20982073 (4) Peritoneal adhesions (postoperative) (postinfection) Current Visit: No Status: Acute Code(s): K66.0 - PERITONEAL ADHESIONS (POSTPROCEDURAL) (POSTINFECTION) SNOMED Code(s): 10134744 Plan: Status post resection for acute diverticulitis Patient recovering nicely Type 2 diabetes Hypothyroidism Review labs, TSH and glucose Normal make recommendations accordingly Thank you Dr. Roland for this most interesting consultation Time with Patient: Greater than 30
--- NOTE | 2022-11-11 16:10 | P.PN ---
Subjective Progress Note Date: 11/11/22 CHIEF COMPLAINT: Diverticulitis HISTORY OF PRESENT ILLNESS: The patient is a 62-year-old female status post robotic left colectomy including sigmoid colectomy and low anterior resection for extensive colonic diverticulitis. Family is at bedside. Nausea resolved. She tolerated full liquid diet. Further review of her intraoperative findings include severe diverticulitis affecting the left colon sigmoid colon as well as adhesions to the uterus and ovary all lysed. Patient reports pain is well-cont rolled and no longer need for PACKER INSPECTOR. ROS: No reports of nausea and vomiting. No fevers or chills. No new chest pain. No productive sputum. PHYSICAL EXAM: VITAL SIGNS: Reviewed CONSTITUTIONAL: Well developed and in no acute distress. EYES: Conjuctivae without sclera icterus. Extraocular movements grossly intact. HEAD, EARS, NOSE, THROAT: Moist buccal mucosa. Head is atraumatic, normocephali c. Hears conversational speech. No nasal drainage. RESPIRATORY: Non-labored respirations and equal bilateral excursions. CARDIOVASCULAR: Palpable 2+ radial pulses. ABDOMEN: Dressing intact. No peritonitis. Abdominal binder present MUSCULOSKELETAL: No gross deformity of the lower extremities noted. No clubbing. No cyanosis. SKIN: Good skin turgor. Well perfused. NEUROLOGIC: Cranial nerves II through XII grossly intact. No focal or lateralizing signs. PSYCH: Appropriate affect. Alert and oriented to person, place and time. CLINICAL LABS: Pending ASSESSMENT: 1. Severe colonic diverticulitis 2. Eye pain, resolved 3. Status post colectomy 4. Oxygen desaturation, resolved 5. Nausea, resolved PLAN: 1. We'll advance to a low fiber diet. 2. Non-narcotic pain management reviewed with Toradol and Tylenol IV. Fentanyl PACKER INSPECTOR discontinued. 3. Antibodies discontinued due to diverticulitis. Objective - Vital Signs Vital signs: Vital Signs Temp 98.1 F 11/11/22 14:00 Pulse 67 11/11/22 14:00 Resp 14 11/11/22 14:00 BP 121/77 11/11/22 14:00 Pulse Ox 94 L 11/11/22 14:00 FiO2 Intake & Output 11/10/22 11/11/22 11/11/22 18:59 06:59 18:59 Output Total 2 Balance -2 Output: Stool 2 Other: Voiding Method Toilet Toilet # Voids 4 4 - Labs CBC & Chem 7: 11/10/22 11:35 11/10/22 11:34 Labs: Abnormal Lab Results - Last 24 Hours (Table) 11/10/22 11/10/22 Range/Units 16:51 19:32 POC Glucose (mg/dL) 151 H 164 H (70-110) mg/dL
[2022-11-11 16:50] LABS: Glucose,Whole Blood 161 mg/dL (70-110)
[2022-11-11] MEDS: KETOROLAC 15 MG/ML 1 ML VIAL IVP SCH (17:25)
[2022-11-11 20:22] LABS: Glucose,Whole Blood 111 mg/dL (70-110)
[2022-11-12] MEDS: METOCLOPRAMIDE 5 MG/ML 2 ML VIAL IVP SCH ×3 (00:28→11:24)
[2022-11-12] MEDS: KETOROLAC 15 MG/ML 1 ML VIAL IVP SCH ×3 (00:28→11:31)
[2022-11-12] MEDS: ONDANSETRON 4 MG/2 ML VIAL IVP SCH ×3 (00:28→11:24)
[2022-11-12 01:55] VITALS: RESP 18
[2022-11-12] MEDS: ERYTHROMYCIN 5 MG/GM OPHTH OINT 3.5 GM TUBE LEFT EYE SCH ×3 (02:12→11:25)
[2022-11-12] MEDS: PIPERACILLIN-TAZOBACTAM 3.375 GM in SODIUM CHLORIDE 0.9% 100 ML IVPB SCH ×2 (05:28→11:15)
[2022-11-12] MEDS: LEVOTHYROXINE 100 MCG TAB PO SCH (05:30)
[2022-11-12 07:00] LABS: Glucose,Whole Blood 120 mg/dL (70-110)
[2022-11-12] MEDS: INSULIN ASPART (NovoLOG) 100 UNIT/ML VIAL SQ SCH ×2 (07:08→12:01)
[2022-11-12 08:07] VITALS: TEMP 98
[2022-11-12] MEDS: ENOXAPARIN 30 MG/0.3 ML SYRINGE SQ SCH (08:38)
[2022-11-12] MEDS: GABAPENTIN 300 MG CAP PO SCH (08:39)
[2022-11-12] MEDS: SIMETHICONE 40 MG/0.6 ML DROPS 2,000 MG/30 ML BOTTLE PO SCH ×2 (08:39→11:25)
[2022-11-12 11:46] LABS: Glucose,Whole Blood 105 mg/dL (70-110)
--- NOTE | 2022-11-12 13:50 | P.DS ---
Providers Date of admission: 11/08/22 07:15 Expected date of discharge: 11/12/22 Attending physician: Pau Thomas Consults: 11/08/22 19:57 Consult Physician Routine Consulting Provider: Trevin Meza Jr Consult Reason/Comments: Medical management Do you want consulting provider notified?: Yes 11/09/22 02:05 Consult Physician Routine Consulting Provider: Ronald Estrada Consult Reason/Comments: Left eye irritation, possible scratch Do you want consulting provider notified?: Yes, Notify in am 11/10/22 10:47 Consult Physician Routine Consulting Provider: Cheng Mckenzie Consult Reason/Comments: Exacerbation COPD Do you want consulting provider notified?: Yes Primary care physician: Trevin Meza [facility] Course: Discharge diagnosis 1. Near complete large bowel obstruction from sigmoid diverticulitis 2. Diabetes type 2, [id number] 3. 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 Patient had evidence of a near complete large bowel obstruction from sigmoid diverticulitis. Patient is status post Robotic-assisted daVinci Xi laparoscopic extensive lysis of adhesions over 3 hours for takedown of left pelvic phlegmon, Robotic-assisted daVinci Xi laparoscopic with descending colectomy and sigmoid colectomy with low anterior resection and Robotic-assisted daVinci Xi laparoscopic mobilization of splenic flexure. Patient tolerated surgery well. Her pain is controlled. She has been up and ambulating. She is having flatus and bowel movements. She denies any nausea or vomiting. She is tolerating diet. She is afebrile. She is stable for discharge. Physician Sky Diver note has been reviewed by physician. Signing provider agrees with the documented findings, assessment, and plan of care. Patient Condition at Discharge: Stable Plan - Discharge Summary Discharge Rx Participant: No New Discharge Prescriptions: New Artificial Tears Ointment [Lubrifresh Pm Ointment] 1 applic BOTH EYES QID PRN each PRN Reason: Dry Eye(S) Simethicone 40 mg/0.6 ml Drops [Mylicon Drops] 40 mg PO QID ml Erythromycin Ophth Oint [Romycin Ophth Oint] 1 applic LEFT EYE Q6HR each Artificial Tears-Hypromellose [Artificial Tear Drops] 2 drops LEFT EYE TID PRN ml PRN Reason: Dry Eye(S) Ibuprofen [Motrin] 600 mg PO Q8HR PRN #30 tab PRN Reason: Pain Acetaminophen Tab [Tylenol] 1,000 mg PO Q6HR PRN #30 tablet PRN Reason: Pain Continue Levothyroxine Sodium [Synthroid] 100 mcg PO QAM ALPRAZolam [Xanax] 1 mg PO TID PRN PRN Reason: Anxiety Discharge Medication List Levothyroxine Sodium [Synthroid] 100 mcg PO QAM 07/07/15 [History] ALPRAZolam [Xanax] 1 mg PO TID PRN 01/31/17 [History] Acetaminophen Tab [Tylenol] 1,000 mg PO Q6HR PRN #30 tablet 11/12/22 [Rx] Artificial Tears Ointment [Lubrifresh Pm Ointment] 1 applic BOTH EYES QID PRN each 11/12/22 [Rx] Artificial Tears-Hypromellose [Artificial Tear Drops] 2 drops LEFT EYE TID PRN ml 11/12/22 [Rx] Erythromycin Ophth Oint [Romycin Ophth Oint] 1 applic LEFT EYE Q6HR each 11/12/22 [Rx] Ibuprofen [Motrin] 600 mg PO Q8HR PRN #30 tab 11/12/22 [Rx] Simethicone 40 mg/0.6 ml Drops [Mylicon Drops] 40 mg PO QID ml 11/12/22 [Rx] Follow up Appointment(s)/Referral(s): Pau Thomas MD [STAFF PHYSICIAN] - 11/19/22 Activity/Diet/Wound Care/Special Instructions: Wear abdominal binder at all times for comfort. No lifting over 4 pounds in 4 weeks You May shower. No bath tub soaks for two weeks Use Tylenol and ibuprofen scheduled for the next 24-48 hours for best pain relief. Use ice along incisions for the today to prevent swelling. Continue low fiber diet Discharge Disposition: HOME SELF-CARE
[2022-11-12 14:18] VITALS: BP 120/64; PULSE 68
== END 2022-11-12 14:48 | disposition home or self-care (01) | DRG 330 ==
LOC: 2ORMAIN 07:15 → 4SSUR 17:51
PROVIDERS: ADMIT Surgery Plastic and Reconstructive Surgery; ATTEND Surgery Plastic and Reconstructive Surgery
PROC: 0DBM4ZZ Excision of Descending Colon, Percutaneous Endoscopic Approach (ICD-10-PCS; 2022-11-08)
PROC: 0DNL4ZZ Release Transverse Colon, Percutaneous Endoscopic Approach (ICD-10-PCS; 2022-11-08)
PROC: 0JNC3ZZ Release Pelvic Region Subcutaneous Tissue and Fascia, Percutaneous Approach (ICD-10-PCS; 2022-11-08)
PROC: 0DJD8ZZ Inspection of Lower Intestinal Tract, Via Natural or Artificial Opening Endoscopic (ICD-10-PCS; 2022-11-08)
PROC: 8E0W4CZ Robotic Assisted Procedure of Trunk Region, Percutaneous Endoscopic Approach (ICD-10-PCS; 2022-11-08)
PROC: 0DTN4ZZ Resection of Sigmoid Colon, Percutaneous Endoscopic Approach (ICD-10-PCS; principal; 2022-11-08 08:55)
DX: K57.30 Diverticulosis of large intestine without perforation or abscess without bleeding (principal); J44.1 Chronic obstructive pulmonary disease with (acute) exacerbation; K56.50 Intestinal adhesions [bands], unspecified as to partial versus complete obstruction; T80.92XA Unspecified transfusion reaction, initial encounter; E11.9 Type 2 diabetes mellitus without complications; E03.9 Hypothyroidism, unspecified; S05.02XA Injury of conjunctiva and corneal abrasion without foreign body, left eye, initial encounter; N73.6 Female pelvic peritoneal adhesions (postinfective); Z87.891 Personal history of nicotine dependence; Z79.890 Hormone replacement therapy; Z79.899 Other long term (current) drug therapy; Z80.0 Family history of malignant neoplasm of digestive organs; Z80.1 Family history of malignant neoplasm of trachea, bronchus and lung
CPT/HCPCS: 64488; 71046; 80048; 80053; 83036; 85025; 86850; 86900; 86901; 88307

== ENCOUNTER → 2023-12-12 | Outpatient (CLI) | payer OTHER ==
--- NOTE | 2023-12-15 07:37 | MM ---
Reason for Exam: Screening (asymptomatic). Last mammogram was performed 1 year(s) and 7 month(s) ago. Patient History: Menarche at age 13. First Full-Term at age 22. Postmenopausal. Patient used Hormonal Contraceptives for 20 years. Sister had breast cancer, age 75. Risk Values: Odalis 5 year model risk: 3.0%. NCI Lifetime model risk: 12.4%. Prior Study Comparison: 01/23/2011 Bilateral Screening Mammogram, [facility]. 01/30/2011 Left Diagnostic Mammogram, [facility]. 11/21/2016 Bilateral Screening Mammogram, [facility]. 01/19/2019 Bilateral Screening Mammogram, [facility]. 05/10/2022 Bilateral MG 3D screening mammo w/cad, [facility]. Tissue Density: There are scattered fibroglandular densities. Findings: Analyzed By CAD. There is no suspicious group of microcalcifications or new suspicious mass. Overall Assessment: Negative, BI-RAD 1 Management: Screening Mammogram of both breasts in [address] [facility] will attempt to contact patient to return for supplemental views and ultrasound if indicated. Patient should continue monthly self-breast exams. A clinical breast exam by your physician is recommended on an annual basis. This exam should not preclude additional follow-up of suspicious palpable abnormalities. Note on Odalis scores and lifetime risk: 1. A Odalis score greater than 3% is considered moderate risk. If this is the case, consider specialist referral to assess eligibility for a risk reducing agent. 2. If overall lifetime risk for the development of breast cancer is 20% or higher, the patient may qualify for future screening with alternating mammogram and breast MRI. Electronically signed and approved by: Cehng Holt DO
== END | disposition home or self-care (01) ==
LOC: RADMAMWWP 08:39
PROVIDERS: ATTEND Family Medicine
DX: Z12.31 Encounter for screening mammogram for malignant neoplasm of breast (principal); Z78.0 Asymptomatic menopausal state; Z80.3 Family history of malignant neoplasm of breast
CPT/HCPCS: 77063; 77067

== ENCOUNTER → 2025-05-06 | Outpatient (CLI) | payer BC ==
--- NOTE | 2025-05-09 08:58 | MM ---
Reason for Exam: Screening (asymptomatic). Last mammogram was performed 1 year(s) and 4 month(s) ago. Patient History: Menarche at age 13. First Full-Term at age 22. Postmenopausal. Patient used Hormonal Contraceptives for 20 years. Sister had breast cancer, age 75. Risk Values: Odalis 5 year model risk: 3.1%. NCI Lifetime model risk: 12.1%. Prior Study Comparison: 01/19/2019 Bilateral Screening Mammogram, [facility]. 05/10/2022 Bilateral MG 3D screening mammo w/cad, [facility]. 12/12/2023 Bilateral MG 3D screening mammo w/cad, [facility]. Tissue Density: There are scattered areas of fibroglandular density. Findings: Analyzed By CAD. There is no suspicious group of microcalcifications or new suspicious mass in either breast. Overall Assessment: Negative, BI-RAD 1 Management: Screening Mammogram of both breasts in 1 year. See note below in regards to the patient's increased 5 year Odalis score. Patient should continue monthly self-breast exams. A clinical breast exam by your physician is recommended on an annual basis. This exam should not preclude additional follow-up of suspicious palpable abnormalities. Note on Odalis scores and lifetime risk: 1. A Odalis score greater than 3% is considered moderate risk. If this is the case, consider specialist referral to assess eligibility for a risk reducing agent. 2. If overall lifetime risk for the development of breast cancer is 20% or higher, the patient may qualify for future screening with alternating mammogram and breast MRI. [facility], , 05/09/2025 8:55 AM. Electronically signed and approved by: Margarito Vogt M.D. Radiologist
== END | disposition home or self-care (01) ==
LOC: RADMAMWWP 16:35
PROVIDERS: ATTEND Family Medicine
DX: Z12.31 Encounter for screening mammogram for malignant neoplasm of breast (principal); R92.323 Mammographic fibroglandular density, bilateral breasts; Z78.0 Asymptomatic menopausal state; Z80.3 Family history of malignant neoplasm of breast; Z92.0 Personal history of contraception
CPT/HCPCS: 77063; 77067